=== PATIENT | male | born 1950 | race African-American/Black ===

== ENCOUNTER 2016-10-01 14:19 | Inpatient (IN) ==
--- NOTE | 2016-10-01 14:53 | Emergency Department Note ---
Arrival - Arrival Chief Complaint: Neuro Stated Complaint: check sugar ED Nursing Triage Note: reports not feeling right since last night. reports that he is having weakness. pt is tearful in triiage. having trouble getting words out. accu check in triage is 144. Mode of Arrival: Wheelchair Limitations: Altered Mental Status Source: Patient, Family Time Seen by Provider: 10/01/16 14:48 - History of Present Illness HPI Narrative: This 65-year-old black male presents tearful with spontaneous outbursts of crying describing feeling much more weaker than usual and just not feeling right , stating I do not want to today. His describes his emotional state as being upside down for the last 18 hours with periods of disorientation and what she feels is visible difficulty getting words out. She states this is how he presented with his stroke in the past which left him with no residual deficits at that time. In addition she states on this occasion that he frequently states his mother is around him any complaints of painful hard lesions in his right axilla. Patient at no time demonstrated any chest pain, shortness of breath, nausea, vomiting, focal deficits, slurring of speech , or complaints of headache. He does have an extensive history of coronary artery disease as well as dialysis dependent renal failure, dialyzing Sunday and Sunday. Currently he is tearful but in no acute medical distress. Onset (ago): hour(s) (Patient presents 18 hours post onset of symptoms) Allergies/Adverse Reactions: Allergies Allergy/AdvReac Type Severity Reaction Status Date / Time No Known Allergies Allergy Verified 01/07/16 08:27 Home Medications: Home Medications Medication Instructions Recorded Confirmed Type Allopurinol [Zyloprim] 100 mg PO DAILY PRN #0 tablet 01/13/16 03/29/16 Rx Aspirin EC Tab 81 mg PO DAILY tablet 01/13/16 03/29/16 Rx Carvedilol [Coreg] 25 mg PO BID #60 tablet 01/13/16 03/29/16 Rx Clopidogrel [Plavix] 75 mg PO DAILY #30 tablet 01/13/16 03/29/16 Rx Insulin Aspart Prot/Asp 70/30 55 unit SUBCUT BID injection 01/13/16 03/29/16 Rx [NovoLOG Mix 70/30] Rosuvastatin [Crestor] 20 mg PO BEDTIME #30 tablet 01/13/16 03/29/16 Rx Omeprazole 20 mg PO DAILY 01/30/16 03/29/16 History Ondansetron Odt Tab [Zofran Odt] 4 mg PO Q6H #15 tablet 01/30/16 03/29/16 Rx cloNIDine TAB [Catapres Tab] 0.1 mg PO TID 01/30/16 03/29/16 History Calcium Acetate 1,334 mg PO TID W/MEALS 02/10/16 03/29/16 History Calcium Acetate 667 mg PO BID 02/10/16 03/29/16 History Cyanocobalamin/Folic AC/Vit B6 1 tablet PO DAILY 02/10/16 03/29/16 History [Virt-Isiah Forte Tablet] Tamsulosin [Flomax] 0.4 mg PO DAILY 02/10/16 03/29/16 History NIFEdipine XL TAB [Procardia Xl] 60 mg PO DAILY #30 tablet 02/15/16 03/29/16 Rx Review of System - Review of System 12 point system: reviewed and no additional remarkable complaints except as stated - Review of System Constitutional: Present: as per HPI Respiratory: Present: as per HPI Cardiovascular: Present: as per HPI Gastrointestinal: Present: as per HPI Neurological: Present: as per HPI Psychiatric: Present: as per HPI Medical,Surgical,& Family Hx - Medical History Cardio: History of: CHF, CAD (LAD stent x 2 12/28), Hypertension No history of: [place] Psychological: No history of: Depression Neurology: History of: Cerebrovascular Accident No history of: Dementia, Seizures, Vertigo HEENT: History of: Eye Problem (cataract surgery x 2), Glaucoma Endocrine: History of: Diabetes Mellitus (IDDM), Dyslipidemia Respiratory: History of: Obstructive Sleep Apnea (pt states he does not wear Cpap) Renal: History of: Dialysis (M-W-F), Renal Failure, Renal Problems Genitourinary: History of: Kidney Stones Gastrointestinal: History of: GERD, Polyps No history of: Gastrointestinal Bleed Other: History of: Miscellaneous Medical Problems (avg declot jan 2016) - Surgical History Cardiac Surgeries: Sugical HX of: Cardiac Catheterization (PCI of LAD 12/28) Thoracic Surgeries: Patient denies;: Organ Transplant Neurologic Surgeries: Patient denies: Neurologic Surgery HEENT Surgeries: Surgical HX of: Eye Surgery (CATARACT REMOVAL LEFT EYE) Abdominal Surgeries: Surgical HX of: Abdominal Surgery (COLECTOMY), Appendectomy , Colonoscopy (scheduled for another follow up cscope next month) - Family History Family History: Reports;: Family Diabetes (BROTHER AND SISTER), Family Heart Disease, Family Hypertension, Family Stroke (father) - Social History Smoking Status: Never smoker Exam Physical Examination: GENERAL: Weeping obese black male in no acute distress.. HEENT: Normocephalic. No trauma. Moist mucous membranes. EOMI. PERRLA. ENT NML NECK: Supple. No adenopathy. CARDIAC: Regular. No murmurs. Heart rate 64 CHEST: Clear to auscultation. No respiratory distress. O2 sat 97%. Pustular lesion right anterior chest wall with minimal expressible pus ABDOMEN: Soft. Nontender. Active bowel sounds. EXTREMITIES: No trauma. Normal ROM. No pedal edema. Painful hard firm right axillary adenitis with scant amount of pus with pressure SKIN: No diaphoresis. No rash. NEURO: Alert. Oriented 3. Motor, sensory, vibratory intact. No focal deficits. Vital Signs: Vital Signs Temperature 99.5 F 10/01/16 14:47 Pulse Rate 65 10/01/16 15:30 Respiratory Rate 17 10/01/16 15:30 Blood Pressure 175/85 10/01/16 15:30 O2 Sat by Pulse Oximetry 100 10/01/16 15:30 Course - Reevaluation(s) Reevaluation #1: Discussed with family the need for further evaluation of his altered mental status with hospitalization. - Consultations Consultation #1: Discussed with Dr. Encarnacion who will admit for Dr. Oleary. Results - Labs CBC & BMP: 10/01/16 15:03 10/01/16 15:03 Labs: I have reviewed the laboratory noted the expected abnormalities given the patient has diabetes and dialysis dependent renal failure - Impressions EKG: Sinus rhythm at 62 with normal [place] interval and QRS duration. Evidence of old inferior infarct. Occasional PAC. Nonspecific ST changes with no acute injury pattern noted. - Diagnostic Findings Procedure: Chest x-ray: image reviewed by me, report reviewed by me ( Hyperexpansion with right Vas-Cath otherwise no acute findings), CT: image reviewed by me, report reviewed by me (Head: Microvascular ischemia, cerebral atrophy, old right lacunar infarct) Disposition Clinical Impression: Altered mental status, Dialysis dependent renal failure, Coronary artery disease, Depression Case discussed with: patient, patient's family Disposition: Still a Patient Condition: Guarded Time of Disposition: 16:31
[2016-10-01 15:12] LABS: Basophils % 0.6 % (0.0-0.8); Eosinophils # 0.2 10*3/uL (0.0-0.87); Eosinophils % 2.9 % (0.00-10.9); Hematocrit 31.6 VOL% (42.0-52.0); Hemoglobin 10.7 GM/DL (14.0-18.0); Immature Granulocytes % 0.8 %; Immature Granulocytes Absolute 0.05 #; Lymphocytes # 1.9 10*3/uL (1.4-4.0); Lymphocytes % 29.2 % (21.2-54.2); Mean Corpuscular HGB Conc 33.9 GM/DL (32-36); Mean Corpuscular Hemoglobin 29 PG (27-34); Mean Corpuscular Volume 85.4 FL (87-102); Mean Platelet Volume 11.4 FL (9.6-12.0); Monocytes # 0.5 10*3/uL (0.11-0.8); Monocytes % 7.3 % (1.7-12.7); Neutrophils # 3.9 10*3/uL (1.4-7.4); Neutrophils % 59.2 % (38.7-73.9); Platelet Count 167 T/CUMM (130-400); Red Cell Distribution Width 16.5 % (9.3-17.3); White Blood Count 6.6 T/CUMM (4-12)
[2016-10-01 15:28] LABS: INR 1.1; PT Patient Result 11.5 SECS; Partial Thromboplastin Time 28.6 SECS (0-40)
[2016-10-01] MEDS ORDERED: VANCOMYCIN INJ 1,000 MG in SODIUM CHLORIDE 0.9% 250 ML IV STA (15:28)
[2016-10-01 15:35] LABS: Ammonia 41 UMOL/L (11-32)
[2016-10-01 15:42] LABS: Alanine Aminotransferase 38 U/L (16-61); Albumin 3.9 G/DL (3.4-5.0); Alkaline Phosphatase 56 U/L (45-117); Aspartate Amino Transferase 29 U/L (0-37); Bilirubin,Total < 0.39 MG/DL (0.2-1.0); Blood Urea Nitrogen 49 MG/DL (7-18); Calcium 8.2 MG/DL (8.5-10.1); Glucose 123 MG/DL (74-106); Osmolality,Calculated 283.1 MOS/KG (273-304); Potassium 5.2 MMOL/L (3.5-5.1); Sodium 135 MMOL/L (136-145); Total Protein 8.1 G/DL (6.4-8.3); Troponin I Only < 0.015 NG/ML (0.00-0.045)
[2016-10-01] MEDS ORDERED: VANCOMYCIN 1,000 MG VIAL ONE (15:44)
--- NOTE | 2016-10-01 15:51 | CT Report ---
CT head/brain wo con Indication: Mental status changes. CT BRAIN WITHOUT CONTRAST DLP: 998 mGy*cm. One or more of the following dose reduction techniques was used: Automated exposure control, adjustment of the mA and/or kV according the patient size, or use of iterative reconstruction techniques. Comparison: 02/10/2016. Date of admission: 10/01/2016. Technique: Axial noncontrast CT images of the brain were obtained. Findings: No acute hemorrhage, mass or mass effect. Generalized atrophy and patchy periventricular white matter hypodensity is present throughout both convexities. Old lacunar infarct right internal capsule again shown. Cortical michaels-white junction and structures of the basal ganglia are well-defined. No bone lesions are shown. Internal auditory canals are symmetric. Visualized sinuses and mastoid air cells are clear. Impression: No acute intracranial pathology. Generalized atrophy and changes consistent with microvascular disease. Old lacunar infarct right internal capsule. PROCEDURE INTERPRETED AT [facility] DEPARTMENT OF RADIOLOGY Final Report Signed by: Torsten Garcia M.D.
--- NOTE | 2016-10-01 15:52 | XRay Report ---
XR chest 1V portable Indication: Altered mental status. Chest one view: Comparison 03/27/2016. Dialysis catheter position is unchanged. Heart remains normal in size with normal mediastinal contour. Lungs are hypoinflated with no infiltrates. No pulmonary edema. Impression: Pulmonary hypoinflation and dialysis catheter. PROCEDURE INTERPRETED AT [facility] DEPARTMENT OF RADIOLOGY Final Report Signed by: Torsten Garcia M.D.
[2016-10-01] MEDS ORDERED: DEXTROSE 50% 25 GM/50 ML SYRINGE IV PRN (16:34)
[2016-10-01] MEDS ORDERED: GLUCAGON 1 MG VIAL IM PRN (16:34)
[2016-10-01] MEDS ORDERED: ONDANSETRON 4 MG/2 ML VIAL IV PRN (16:34)
[2016-10-01] MEDS ORDERED: hydrALAZINE 20 MG/1 ML VIAL ONE (16:50)
[2016-10-01] MEDS ORDERED: hydrALAZINE 20 MG/1 ML VIAL IV STA (16:51)
[2016-10-01] MEDS: cloNIDine 0.1 MG TABLET PO SCH (21:16)
[2016-10-01] MEDS: ROSUVASTATIN 20 MG TABLET PO SCH (21:16)
[2016-10-01] MEDS: CARVEDILOL 25 MG TABLET PO SCH (21:16)
[2016-10-01] MEDS: INSULIN ASPART PROTAMINE/ASPART 70/30 100 UNIT/ML SUBCUT SCH (21:16)
[2016-10-01] MEDS: INSULIN REGULAR 100 UNIT/ML SUBCUT SCH (21:45)
[2016-10-02] MEDS ORDERED: hydrALAZINE 20 MG/1 ML VIAL IV PRN (01:48)
[2016-10-02 05:38] LABS: Basophils % 0.4 % (0.0-0.8); Eosinophils # 0.2 10*3/uL (0.0-0.87); Eosinophils % 2.8 % (0.00-10.9); Hematocrit 31.2 VOL% (42.0-52.0); Hemoglobin 10.4 GM/DL (14.0-18.0); Immature Granulocytes % 0.9 %; Immature Granulocytes Absolute 0.06 #; Lymphocytes % 27.8 % (21.2-54.2); Mean Corpuscular HGB Conc 33.3 GM/DL (32-36); Mean Corpuscular Hemoglobin 29 PG (27-34); Mean Corpuscular Volume 85.7 FL (87-102); Mean Platelet Volume 11.3 FL (9.6-12.0); Monocytes # 0.4 10*3/uL (0.11-0.8); Monocytes % 6.2 % (1.7-12.7); Neutrophils # 4.4 10*3/uL (1.4-7.4); Neutrophils % 61.9 % (38.7-73.9); Platelet Count 180 T/CUMM (130-400); Red Blood Count 3.64 MC/CUMM (3.8-5.5); Red Cell Distribution Width 16.8 % (9.3-17.3); White Blood Count 7.1 T/CUMM (4-12)
--- NOTE | 2016-10-02 05:54 | EKG Report ---
Stationary ECG Study [facility] ER Test Date: 10/01/2016 3:10:56 PM Pat Name: GISELLE HINSON Department: Room: 272 Gender: M [employer] Supervisor: : [id number] Requested by: Hima Schwartz Order Number: [id number] Reading MD: ELANA GOMEZ Intervals Macy Rate: 62 P: 50 MN: 148 QRS: 33 QRSD: 100 T: 43 QT: 411 QTc: 417 Interpretive Statements SINUS RHYTHM WITH OCCASIONAL SUPRAVENTRICULAR PREMATURE COMPLEXES INFERIOR MYOCARDIAL INFARCTION, PROBABLY OLD Electronically Signed On 10-02-16 06:47:07 CDT by ELANA GOMEZ [email or web address]
[2016-10-02 06:06] LABS: Calcium 8.3 MG/DL (8.5-10.1); Osmolality,Calculated 292.1 MOS/KG (273-304); Potassium 5.1 MMOL/L (3.5-5.1)
[2016-10-02] MEDS ORDERED: hydrALAZINE 20 MG/1 ML VIAL IV ONE (06:18)
--- NOTE | 2016-10-02 08:36 | Internal Med History&Physical ---
Assessment and Plan (1) Change in mental status Status: Acute Assessment and plan: 65-year-old male admitted to acute care * Change in mental status. Etiology is unclear at this time. Probably related to metabolic or infectious condition. His initial CT brain was negative for any acute change. His confusion could be related to infectious etiology. Cultures have been done. He will be started on broad-spectrum antibiotics. * End-stage renal disease on hemodialysis. Will consult Dr. Duncan to follow the patient. Today is his normal dialysis day. * Multiple abscesses. Will consult Dr. Ngoc CARMICHAEL to evaluate and treat. Will also consult Dr. Morrell to assist with antibiotic choices. He did receive 1 g of vancomycin and ER. Local cultures were done. * Diabetes. Will continue patient on sliding scale and his home insulin * Coronary artery disease. Stable patient has been on Plavix. * Hypertension. Continue current treatment * Discussed in detail with patient's and patient Current Visit: Yes (2) Abscess of multiple sites Status: Acute Current Visit: Yes (3) Coronary artery disease Status: Chronic Current Visit: No Qualifiers: Coronary Disease-Associated Artery/Lesion type: [place] artery [place] vs. transplanted heart: [place] heart Associated angina: without angina Qualified Code(s): I25.10 - Atherosclerotic heart disease of [place] coronary artery without angina pectoris (4) Diabetes Status: Chronic Current Visit: No Qualifiers: Diabetes mellitus type: type 2 Diabetes mellitus complication status: with kidney complications Diabetes mellitus complication detail: with chronic kidney disease Chronic kidney disease stage: on chronic dialysis (5) ESRD (end stage renal disease) Status: Chronic Current Visit: No (6) Hypertension Status: Chronic Current Visit: No Qualifiers: Hypertension type: essential hypertension Qualified Code(s): I10 - Essential (primary) hypertension History of Present Illness Chief complaint: Change in mental state History of present illness: Mr. Grey is a 65 year old male with history of multiple medical problems including coronary artery disease, insulin-dependent diabetes, hyperlipidemia, end-stage renal disease on dialysis 3 times a week, hyperlipidemia who came to the emergency room not feeling right. He has been quite emotional according to his . He was quite disoriented during the daytime. He had difficulty getting his words out. According to the patient is having hallucinations at times. He actually admits mostly visual hallucinations. He has been having increased pain in the right axilla and chest wall. He has had lesions which were incised by Dr. Grossman the third. He denies any chest pain shortness of breath. He denies any nausea vomiting or diarrhea. He denies any fever or chills. He had his last dialysis on Sunday and it was normal. He had stents placed in his LAD in December 2015. He does have obstructive sleep apnea but does not use his CPAP. He has a indwelling catheter for dialysis in the right upper chest wall. His fistula has not been working for past 1 year. He lives at home with his . Patient has been quite emotional and tearful according to his . Home Medications Medication Instructions Recorded Confirmed Type Allopurinol [Zyloprim] 100 mg PO DAILY PRN #0 tablet 01/13/16 03/29/16 Rx Aspirin EC Tab 81 mg PO DAILY tablet 01/13/16 03/29/16 Rx Carvedilol [Coreg] 25 mg PO BID #60 tablet 01/13/16 03/29/16 Rx Clopidogrel [Plavix] 75 mg PO DAILY #30 tablet 01/13/16 03/29/16 Rx Insulin Aspart Prot/Asp 70/30 55 unit SUBCUT BID injection 01/13/16 03/29/16 Rx [NovoLOG Mix 70/30] Rosuvastatin [Crestor] 20 mg PO BEDTIME #30 tablet 01/13/16 03/29/16 Rx Omeprazole 20 mg PO DAILY 01/30/16 03/29/16 History Ondansetron Odt Tab [Zofran Odt] 4 mg PO Q6H #15 tablet 01/30/16 03/29/16 Rx cloNIDine TAB [Catapres Tab] 0.1 mg PO TID 01/30/16 03/29/16 History Calcium Acetate 1,334 mg PO TID W/MEALS 02/10/16 03/29/16 History Calcium Acetate 667 mg PO BID 02/10/16 03/29/16 History Cyanocobalamin/Folic AC/Vit B6 1 tablet PO DAILY 02/10/16 03/29/16 History [Virt-Isiah Forte Tablet] Tamsulosin [Flomax] 0.4 mg PO DAILY 02/10/16 03/29/16 History NIFEdipine XL TAB [Procardia Xl] 60 mg PO DAILY #30 tablet 02/15/16 03/29/16 Rx Allergies Allergy/AdvReac Type Severity Reaction Status Date / Time No Known Allergies Allergy Verified 01/07/16 08:27 Medical,Surgical,& Family Hx - Medical History Cardio: History of: CHF, CAD (LAD stent x 2 12/28), Hypertension No history of: [place] Psychological: No history of: Depression Neurology: History of: Cerebrovascular Accident No history of: Dementia, Seizures, Vertigo HEENT: History of: Eye Problem (cataract surgery x 2), Glaucoma Endocrine: History of: Diabetes Mellitus (IDDM), Dyslipidemia Respiratory: History of: Obstructive Sleep Apnea (pt states he does not wear Cpap) Renal: History of: Dialysis (M-W-; left tessio), Renal Failure, Renal Problems Genitourinary: History of: Kidney Stones Gastrointestinal: History of: GERD, Polyps No history of: Gastrointestinal Bleed Other: History of: Miscellaneous Medical Problems (avg declot jan 2016) - Surgical History Cardiac Surgeries: Sugical HX of: Cardiac Catheterization (PCI of LAD 12/28) Thoracic Surgeries: Patient denies;: Organ Transplant Neurologic Surgeries: Patient denies: Neurologic Surgery HEENT Surgeries: Surgical HX of: Eye Surgery (CATARACT REMOVAL LEFT EYE) Abdominal Surgeries: Surgical HX of: Abdominal Surgery (COLECTOMY), Appendectomy , Colonoscopy (scheduled for another follow up cscope next month) - Family History Family History: Reports;: Family Diabetes (BROTHER AND SISTER), Family Heart Disease, Family Hypertension, Family Stroke (father) - Social History Smoking Status: Never smoker Frequency of Alcohol Use: None Type of Drug Use: None Marital Status: Lives With:: Spouse Functional capacity: independent ambulation 12 point system: reviewed and no additional remarkable complaints except as stated (As mentioned in HPI) Exam - Constitutional Vitals: Period Temp Pulse Resp BP Sys/Nelson Pulse Ox Last 24 Hr 97.6 F-99.5 F 63-78 14-20 172-230/73-100 96-100 Exam: Examination: GENERAL: Patient is awake alert and in no acute distress. He is slightly confused and knows that he is. HEENT: PERRLA. EOMI. Mucous membranes are moist. NECK: Neck is supple. No JVD. No carotid bruit. No thyromegaly. CVS: Regular rate and rhythm. S1 and S2 are normal. RESPIRATORY: Lungs are clear. No rales or rhonchi. ABDOMEN: Soft and nontender. Bowel sounds are present. No hepatosplenomegaly. EXT: No edema. Peripheral pulses are present. 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 Cranial nerves II through XII are grossly intact. Motor strength is 5 over 5 both upper and lower extremities. SKIN: Warm and dry. There is an abscess in the right anterior chest wall below his nipple. It is draining pus. He also has an indurated area in the right axilla where it appears to have couple of abscesses. MSK: No obvious deformity. Results - Labs CBC & BMP: 10/02/16 04:58 10/02/16 04:58 Lab Results: I have reviewed the past 24 hour labs
[2016-10-02] MEDS: INSULIN ASPART PROTAMINE/ASPART 70/30 100 UNIT/ML SUBCUT SCH ×2 (09:15→17:13)
[2016-10-02] MEDS: PIPERACILLIN/TAZOBACTAM 3,375 MG in SODIUM CHLORIDE 0.9% 100 ML IV SCH ×2 (10:13→22:18)
[2016-10-02] MEDS: INSULIN REGULAR 100 UNIT/ML SUBCUT SCH ×4 (10:13→22:24)
[2016-10-02] MEDS: CARVEDILOL 25 MG TABLET PO SCH ×2 (10:17→22:16)
[2016-10-02] MEDS: TAMSULOSIN 0.4 MG CAPSULE PO SCH (10:17)
[2016-10-02] MEDS: CLOPIDOGREL 75 MG TABLET PO SCH (10:17)
[2016-10-02] MEDS: PANTOPRAZOLE 40 MG TABLET PO SCH (10:17)
[2016-10-02] MEDS: cloNIDine 0.1 MG TABLET PO SCH ×3 (10:17→22:16)
--- NOTE | 2016-10-02 11:55 | Nephrology Consult Note ---
History of Present Illness Chief complaint: ESRD History of present illness: Mr. Grey is a 65 year old male with ESRD secondary to diabetes. He has multiple other chronic medical problems including CAD hypertension and cerebrovascular disease. He was admitted with altered mental status. He has had visual hallucinations, stating that things look like they are moving when they are not. His states he has been more emotional recently. No seizure activity has been witnessed. He has a subcutaneous abscess on his right chest which was noted last week. He received vancomycin Sunday of last week in the dialysis unit. He has had a previous right axillary abscess drained. Home Medications Medication Instructions Recorded Confirmed Type Aspirin EC Tab 81 mg PO DAILY tablet 01/13/16 10/02/16 Rx Carvedilol [Coreg] 25 mg PO BID #60 tablet 01/13/16 10/02/16 Rx Clopidogrel [Plavix] 75 mg PO DAILY #30 tablet 01/13/16 10/02/16 Rx Rosuvastatin [Crestor] 20 mg PO BEDTIME #30 tablet 01/13/16 10/02/16 Rx Omeprazole 20 mg PO DAILY 01/30/16 10/02/16 History cloNIDine TAB [Catapres Tab] 0.2 mg PO BID 01/30/16 10/02/16 History Cyanocobalamin/Folic AC/Vit B6 1 tablet PO DAILY 02/10/16 10/02/16 History [Virt-Isiah Forte Tablet] Tamsulosin [Flomax] 0.4 mg PO DAILY 02/10/16 10/02/16 History NIFEdipine XL TAB [Procardia Xl] 60 mg PO DAILY #30 tablet 02/15/16 10/02/16 Rx Fenofibrate [Fenofibrate] 160 mg PO DAILY 10/02/16 10/02/16 History Insulin Aspart Prot/Asp 70/30 55 unit SUBCUT QAM 10/02/16 10/02/16 History [NovoLOG Mix 70/30] Insulin Aspart Prot/Asp 70/30 60 units SUBCUT BEDTIME 10/02/16 10/02/16 History [NovoLOG Mix 70/30] Allergies Allergy/AdvReac Type Severity Reaction Status Date / Time No Known Allergies Allergy Verified 01/07/16 08:27 Medical,Surgical,& Family Hx - Medical History Cardio: History of: CHF, CAD (LAD stent x 2 12/28), Hypertension No history of: [place] Psychological: No history of: Depression Neurology: History of: Cerebrovascular Accident No history of: Dementia, Seizures, Vertigo HEENT: History of: Eye Problem (cataract surgery x 2), Glaucoma Endocrine: History of: Diabetes Mellitus (IDDM), Dyslipidemia Respiratory: History of: Obstructive Sleep Apnea (pt states he does not wear Cpap) Renal: History of: Dialysis (M-W-F; left tessio), Renal Failure, Renal Problems Genitourinary: History of: Kidney Stones Gastrointestinal: History of: GERD, Polyps No history of: Gastrointestinal Bleed Other: History of: Miscellaneous Medical Problems (avg declot jan 2016) - Surgical History Cardiac Surgeries: Sugical HX of: Cardiac Catheterization (PCI of LAD 12/28) Thoracic Surgeries: Patient denies;: Organ Transplant Neurologic Surgeries: Patient denies: Neurologic Surgery HEENT Surgeries: Surgical HX of: Eye Surgery (CATARACT REMOVAL LEFT EYE) Abdominal Surgeries: Surgical HX of: Abdominal Surgery (COLECTOMY), Appendectomy , Colonoscopy (scheduled for another follow up cscope next month) - Family History Family History: Reports;: Family Diabetes (BROTHER AND SISTER), Family Heart Disease, Family Hypertension, Family Stroke (father) - Social History Smoking Status: Never smoker Frequency of Alcohol Use: None Type of Drug Use: None Review of Systems 12 point system: reviewed and no additional remarkable complaints except as stated Exam - Vital Signs Vital signs: Period Temp Pulse Resp BP Sys/Nelson Pulse Ox Last 24 Hr 97.6 F-99.5 F 63-78 14-20 168-230/73-101 96-100 Exam: Gen.: Alert and oriented x3. ENT: Pupils equal round reactive to light. EOMs intact. Mucous membranes moist. Neck: Supple. No JVD or bruit. Cardiovascular: Regular rate and rhythm. No murmur rub or gallop Lungs: Clear. Right chest wall abscess Abdomen: Soft. Nontender. Positive bowel sounds. No organomegaly Extremities: Trace edema Results - Labs CBC & BMP: 10/02/16 04:58 10/02/16 04:58 Assessment and Plan (1) ESRD (end stage renal disease) Status: Chronic Assessment and plan: 65-year-old man with: * ESRD. Dialysis today * Altered mental status. CT scan shows remote lacunar infarct. No acute changes * Abscess, chest wall and right axilla. He received a second dose of vancomycin in the ER. Zosyn has been started also. * Diabetes mellitus * CAD. Prior stent placement * Cerebrovascular disease Current Visit: No (2) Abscess of multiple sites Status: Acute Current Visit: Yes (3) Change in mental status Status: Acute Current Visit: Yes (4) Coronary artery disease Status: Chronic Current Visit: No Qualifiers: Coronary Disease-Associated Artery/Lesion type: [place] artery [place] vs. transplanted heart: [place] heart Associated angina: without angina Qualified Code(s): I25.10 - Atherosclerotic heart disease of [place] coronary artery without angina pectoris (5) Diabetes Status: Chronic Current Visit: No Qualifiers: Diabetes mellitus type: type 2 Diabetes mellitus complication status: with kidney complications Diabetes mellitus complication detail: with chronic kidney disease Chronic kidney disease stage: on chronic dialysis (6) Hypertension Status: Chronic Current Visit: No Qualifiers: Hypertension type: essential hypertension Qualified Code(s): I10 - Essential (primary) hypertension
--- NOTE | 2016-10-02 12:03 | General Surgery Consult Note ---
Assessment and Plan (1) Abscess of multiple sites Status: Acute Assessment and plan: I have discussed the options for management with the patient and his family including warm compress and antibiotics versus incision and drainage of the abscesses. I recommended incision and drainage of these abscesses to expedite recovery and control infection. The patient and his family like to proceed. I discussed the risks, benefits, and alternatives of the operation, and the expected outcomes have been reviewed. The patient has already eaten today and I do not think this is an emergency that needs to be done on a full stomach so we will allow him to dialyze today and schedule this for tomorrow in the operating room. Current Visit: Yes History of Present Illness Chief complaint: Right axillary and right chest wall abscesses History of present illness: Mr. Grey is a 65 year old male with a history of end-stage renal disease on hemodialysis who presents to the hospital with abscesses of the right chest wall and axilla on the right side. He has had these before drained by Dr. Grossman. He is afebrile with a normal white blood cell count. He is having pain over these areas. This started draining yesterday. Home Medications Medication Instructions Recorded Confirmed Type Aspirin EC Tab 81 mg PO DAILY tablet 01/13/16 10/02/16 Rx Carvedilol [Coreg] 25 mg PO BID #60 tablet 01/13/16 10/02/16 Rx Clopidogrel [Plavix] 75 mg PO DAILY #30 tablet 01/13/16 10/02/16 Rx Rosuvastatin [Crestor] 20 mg PO BEDTIME #30 tablet 01/13/16 10/02/16 Rx Omeprazole 20 mg PO DAILY 01/30/16 10/02/16 History cloNIDine TAB [Catapres Tab] 0.2 mg PO BID 01/30/16 10/02/16 History Cyanocobalamin/Folic AC/Vit B6 1 tablet PO DAILY 02/10/16 10/02/16 History [Virt-Isiah Forte Tablet] Tamsulosin [Flomax] 0.4 mg PO DAILY 02/10/16 10/02/16 History NIFEdipine XL TAB [Procardia Xl] 60 mg PO DAILY #30 tablet 02/15/16 10/02/16 Rx Fenofibrate [Fenofibrate] 160 mg PO DAILY 10/02/16 10/02/16 History Insulin Aspart Prot/Asp 70/30 55 unit SUBCUT QAM 10/02/16 10/02/16 History [NovoLOG Mix 70/30] Insulin Aspart Prot/Asp 70/30 60 units SUBCUT BEDTIME 10/02/16 10/02/16 History [NovoLOG Mix 70/30] Allergies Allergy/AdvReac Type Severity Reaction Status Date / Time No Known Allergies Allergy Verified 01/07/16 08:27 Medical,Surgical,& Family Hx - Medical History Cardio: History of: CHF, CAD (LAD stent x 2 12/28), Hypertension No history of: [place] Psychological: No history of: Depression Neurology: History of: Cerebrovascular Accident No history of: Dementia, Seizures, Vertigo HEENT: History of: Eye Problem (cataract surgery x 2), Glaucoma Endocrine: History of: Diabetes Mellitus (IDDM), Dyslipidemia Respiratory: History of: Obstructive Sleep Apnea (pt states he does not wear Cpap) Renal: History of: Dialysis (M-W-; left tessio), Renal Failure, Renal Problems Genitourinary: History of: Kidney Stones Gastrointestinal: History of: GERD, Polyps No history of: Gastrointestinal Bleed Other: History of: Miscellaneous Medical Problems (avg declot jan 2016) - Surgical History Cardiac Surgeries: Sugical HX of: Cardiac Catheterization (PCI of LAD 12/28) Thoracic Surgeries: Patient denies;: Organ Transplant Neurologic Surgeries: Patient denies: Neurologic Surgery HEENT Surgeries: Surgical HX of: Eye Surgery (CATARACT REMOVAL LEFT EYE) Abdominal Surgeries: Surgical HX of: Abdominal Surgery (COLECTOMY), Appendectomy , Colonoscopy (scheduled for another follow up cscope next month) - Family History Family History: Reports;: Family Diabetes (BROTHER AND SISTER), Family Heart Disease, Family Hypertension, Family Stroke (father) - Social History Smoking Status: Never smoker Frequency of Alcohol Use: None Type of Drug Use: None - Constitutional Constitutional: Present: as per HPI - EENT Nose, mouth and throat: Present: as per HPI - Cardiovascular Cardiovascular: Present: as per HPI - Respiratory Respiratory: Present: as per HPI - Gastrointestinal Gastrointestinal: Present: as per HPI - Genitourinary Genitourinary: Present: as per HPI - Musculoskeletal Musculoskeletal: Present: as per HPI - Neurological Neurological: Present: as per HPI - Endocrine Endocrine: Present: as per HPI Hematologic/Lymphatic: Present: as per HPI Exam - Constitutional Vitals: Period Temp Pulse Resp BP Sys/Nelson Pulse Ox Last 24 Hr 97.6 F-99.5 F 63-78 14-20 168-230/73-101 96-100 General appearance: no acute distress, over weight - Head Head exam: Present: normal inspection, normocephalic - Eye Eye exam: Present: EOMI. Absent: scleral icterus Pupils: Present: OCHOA - ENT ENT exam: Present: normal exam Mouth exam: Present: normal external inspection, normal voice - Neck Neck exam: Present: normal inspection, trachea midline - Respiratory Respiratory exam: Present: clear to auscultation bilaterally. Absent: accessory muscle use, chest wall tenderness - Cardiovascular Cardiovascular exam: Present: RRR. Absent: systolic murmur, tachycardia - GI/Abdominal GI/Abdominal exam: Present: soft. Absent: tenderness, rebound - Extremities Exam Extremities exam: Present: other (There is a right chest wall abscess and a right axillary abscess that are draining some but not completely opened. They are tender to palpation.) - Back Exam Back exam: Present: normal inspection - Neurological Exam Neurological exam: Present: alert, oriented X3 Speech: Present: normal - Skin Skin exam: Present: normal color, warm Quality Measures - VTE Contraindication to Mechanical VTE Prophylaxis: Ischemic Vascular Disease Results - Labs CBC & BMP: 10/02/16 04:58 10/02/16 04:58
--- NOTE | 2016-10-02 13:07 | Operative Note ---
Date of procedure: 10/02/16 Pre-op diagnosis: Right axillary and right chest wall abscess Post-op diagnosis: same Procedure: #1 incision and drainage of complex abscess right axilla 2. Incision and drainage of simple abscess right chest wall Findings and technique: After informed consent was obtained the patient elected to have his abscess drained at the bedside rather than under anesthesia. Doing this at the bedside would allow him to avoid anesthesia and also he had eaten today though this would have to be done tomorrow after he had dialysis today. The patient elected to go ahead and have been at the bedside procedure without anesthesia. The right axilla was sterilely prepped and draped and 2 small incisions were made to the abscess openings adjacent to one another in the right axilla. Pus was expressed from each of these openings and cultured. These were packed dressed open. The chest anteriorly was prepped and draped in usual sterile fashion and the 2 cm area of induration was incised by 1 cm incision with a #15 blade was evacuated and the wound dressed open. He appeared to tolerate the procedure well. Anesthesia: none Surgeon / Physician: Charbel Grossman III. Specimens: other (Cultures) Condition: stable Disposition: no change Results - Labs CBC & BMP: 10/02/16 04:58 10/02/16 04:58 Discharge Plan - Discharge Medications No Action Aspirin EC Tab 81 mg PO DAILY tablet Carvedilol [Coreg] 25 mg PO BID #60 tablet Clopidogrel [Plavix] 75 mg PO DAILY #30 tablet Rosuvastatin [Crestor] 20 mg PO BEDTIME #30 tablet Insulin Aspart Prot/Asp 70/30 [NovoLOG Mix 70/30] 55 unit SUBCUT QAM Insulin Aspart Prot/Asp 70/30 [NovoLOG Mix 70/30] 60 units SUBCUT BEDTIME cloNIDine TAB [Catapres Tab] 0.2 mg PO BID Omeprazole 20 mg PO DAILY Tamsulosin [Flomax] 0.4 mg PO DAILY Cyanocobalamin/Folic AC/Vit B6 [Virt-Isiah Forte Tablet] 1 tablet PO DAILY NIFEdipine XL TAB [Procardia Xl] 60 mg PO DAILY #30 tablet Fenofibrate [Fenofibrate] 160 mg PO DAILY - Follow Up or Referral - Forms/Instructions
[2016-10-02] MEDS ORDERED: HEPARIN 10,000 UNIT/10 ML VIAL IV SCH (17:00)
[2016-10-02] MEDS: ROSUVASTATIN 20 MG TABLET PO SCH (22:16)
[2016-10-03 06:01] LABS: Basophils % 0.5 % (0.0-0.8); Eosinophils # 0.3 10*3/uL (0.0-0.87); Eosinophils % 3.2 % (0.00-10.9); Hematocrit 33.9 VOL% (42.0-52.0); Hemoglobin 11.4 GM/DL (14.0-18.0); Immature Granulocytes % 0.7 %; Immature Granulocytes Absolute 0.06 #; Lymphocytes # 2.5 10*3/uL (1.4-4.0); Lymphocytes % 31.5 % (21.2-54.2); Mean Corpuscular HGB Conc 33.6 GM/DL (32-36); Mean Corpuscular Hemoglobin 29 PG (27-34); Mean Corpuscular Volume 85.2 FL (87-102); Mean Platelet Volume 11.2 FL (9.6-12.0); Monocytes # 0.5 10*3/uL (0.11-0.8); Monocytes % 6.2 % (1.7-12.7); Neutrophils # 4.7 10*3/uL (1.4-7.4); Neutrophils % 57.9 % (38.7-73.9); Platelet Count 202 T/CUMM (130-400); Red Blood Count 3.98 MC/CUMM (3.8-5.5); Red Cell Distribution Width 16.6 % (9.3-17.3); White Blood Count 8.1 T/CUMM (4-12)
[2016-10-03 06:28] LABS: Calcium 8.6 MG/DL (8.5-10.1); Potassium 4.2 MMOL/L (3.5-5.1)
[2016-10-03] MEDS: INSULIN ASPART PROTAMINE/ASPART 70/30 100 UNIT/ML SUBCUT SCH ×2 (08:10→17:21)
[2016-10-03] MEDS: INSULIN REGULAR 100 UNIT/ML SUBCUT SCH ×4 (08:10→21:27)
--- NOTE | 2016-10-03 09:40 | Internal Med Progress Note ---
Assessment and Plan (1) Change in mental status Status: Acute Assessment and plan: 65-year-old male admitted to acute care * Change in mental status. Confusion is better. He is close to baseline. Probably related to infection * End-stage renal disease on hemodialysis. Continue treatment per Dr. Duncan * Multiple abscesses. I&D done yesterday. Waiting for cultures and sensitivity * Diabetes. Will continue patient on sliding scale and his home insulin * Coronary artery disease. Stable patient has been on Plavix. * Hypertension. Continue current treatment * Discussed with patient and his Current Visit: Yes (2) Abscess of multiple sites Status: Acute Current Visit: Yes (3) Coronary artery disease Status: Chronic Current Visit: No Qualifiers: Coronary Disease-Associated Artery/Lesion type: [place] artery [place] vs. transplanted heart: [place] heart Associated angina: without angina Qualified Code(s): I25.10 - Atherosclerotic heart disease of [place] coronary artery without angina pectoris (4) Diabetes Status: Chronic Current Visit: No Qualifiers: Diabetes mellitus type: type 2 Diabetes mellitus complication status: with kidney complications Diabetes mellitus complication detail: with chronic kidney disease Chronic kidney disease stage: on chronic dialysis (5) ESRD (end stage renal disease) Status: Chronic Current Visit: No (6) Hypertension Status: Chronic Current Visit: No Qualifiers: Hypertension type: essential hypertension Qualified Code(s): I10 - Essential (primary) hypertension Internal Medicine - PN: Subj Interval history: He is feeling much better this morning. He denies any complaints and wants to go home. Exam (Progress Note) - Constitutional Vitals: Period Temp Pulse Resp BP Sys/Nelson Pulse Ox Last 24 Hr 96.8 F-99.3 F 64-77 17-20 148-187/78-82 97-100 Exam: Examination: GENERAL: No acute distress NECK: Neck is supple. CVS: Regular rate and rhythm. S1 and S2 are normal. RESPIRATORY: Lungs are clear. ABDOMEN: Soft and nontender. EXT: No edema. Peripheral pulses are present. PARTITION NOTCHER: Patient is awake, alert and oriented to time place and person. SKIN: Warm and dry. All 3 abscesses were incised and drained yesterday MSK: No obvious deformity. Results - Labs CBC & BMP: 10/03/16 05:29 10/03/16 05:29 Lab Results: I have reviewed the past 24 hour labs Quality Measures - VTE Contraindication to Mechanical VTE Prophylaxis: Ischemic Vascular Disease
[2016-10-03] MEDS: PANTOPRAZOLE 40 MG TABLET PO SCH (10:31)
[2016-10-03] MEDS: PIPERACILLIN/TAZOBACTAM 3,375 MG in SODIUM CHLORIDE 0.9% 100 ML IV SCH ×2 (10:31→21:28)
[2016-10-03] MEDS: CLOPIDOGREL 75 MG TABLET PO SCH (10:31)
[2016-10-03] MEDS: TAMSULOSIN 0.4 MG CAPSULE PO SCH (10:32)
[2016-10-03] MEDS: CARVEDILOL 25 MG TABLET PO SCH ×2 (10:32→21:15)
[2016-10-03] MEDS: cloNIDine 0.1 MG TABLET PO SCH ×3 (10:32→21:15)
--- NOTE | 2016-10-03 12:14 | Event Note ---
He states that his axilla and chest areas feel much better since incision and drainage yesterday. Faint cellulitis in his axilla appears to be. I would continue with local wound care and have instructed the nurses. He can get antibiotics on dialysis.
--- NOTE | 2016-10-03 20:55 | Nephrology Progress Note ---
Nephrology - PN: Subj Interval history: He is alert and oriented. No shortness of breath. States he feels better overall Exam (PN)-Nephrology - Vital Signs Vital signs: Period Temp Pulse Resp BP Sys/Nelson Pulse Ox Last 24 Hr 96.8 F-99.3 F 63-77 17-20 148-192/73-92 95-100 Exam: Gen.: Alert and oriented x3. ENT: Pupils equal round reactive to light. EOMs intact. Mucous membranes moist. Neck: Supple. No JVD or bruit. Cardiovascular: Regular rate and rhythm. No murmur rub or gallop Lungs: Clear Abdomen: Soft. Nontender. Positive bowel sounds. No organomegaly Extremities: No edema - Lab 10/03/16 05:29 10/03/16 05:29 Most recent lab results Calcium 8.6 MG/DL (8.5-10.1) 10/03/16 05:29 Assessment and Plan (1) ESRD (end stage renal disease) Status: Chronic Assessment and plan: 65-year-old man with: * ESRD. Dialysis MWF * Altered mental status. * Abscess, chest wall and right axilla. He received a second dose of vancomycin in the ER. Zosyn has been started also. Culture shows gram- positive cocci. Sensitivities pending * Diabetes mellitus * CAD. Prior stent placement * Cerebrovascular disease Current Visit: No (2) Abscess of multiple sites Status: Acute Current Visit: Yes (3) Change in mental status Status: Acute Current Visit: Yes (4) Coronary artery disease Status: Chronic Current Visit: No Qualifiers: Coronary Disease-Associated Artery/Lesion type: [place] artery [place] vs. transplanted heart: [place] heart Associated angina: without angina Qualified Code(s): I25.10 - Atherosclerotic heart disease of [place] coronary artery without angina pectoris (5) Diabetes Status: Chronic Current Visit: No Qualifiers: Diabetes mellitus type: type 2 Diabetes mellitus complication status: with kidney complications Diabetes mellitus complication detail: with chronic kidney disease Chronic kidney disease stage: on chronic dialysis (6) Hypertension Status: Chronic Current Visit: No Qualifiers: Hypertension type: essential hypertension Qualified Code(s): I10 - Essential (primary) hypertension
[2016-10-03] MEDS: ROSUVASTATIN 20 MG TABLET PO SCH (21:15)
[2016-10-04] MEDS: TAMSULOSIN 0.4 MG CAPSULE PO SCH (08:25)
[2016-10-04] MEDS: INSULIN ASPART PROTAMINE/ASPART 70/30 100 UNIT/ML SUBCUT SCH ×2 (08:25→17:48)
[2016-10-04] MEDS: INSULIN REGULAR 100 UNIT/ML SUBCUT SCH ×3 (08:25→21:31)
[2016-10-04] MEDS: CARVEDILOL 25 MG TABLET PO SCH ×2 (08:25→21:28)
[2016-10-04] MEDS: cloNIDine 0.1 MG TABLET PO SCH ×3 (08:25→21:28)
[2016-10-04] MEDS: CLOPIDOGREL 75 MG TABLET PO SCH (08:26)
[2016-10-04] MEDS: PANTOPRAZOLE 40 MG TABLET PO SCH (08:26)
--- NOTE | 2016-10-04 09:50 | Internal Med Progress Note ---
Assessment and Plan (1) Change in mental status Status: Acute Assessment and plan: 65-year-old male admitted to acute care * Change in mental status. Confusion has resolved * End-stage renal disease on hemodialysis. Continue treatment per Dr. Duncan * Multiple abscesses. Cultures and sensitivity pending * Diabetes. Will continue patient on sliding scale and his home insulin * Coronary artery disease. Stable patient has been on Plavix. * Hypertension. Continue current treatment * Hopefully home in a day or so if okay with the consultants Current Visit: Yes (2) Abscess of multiple sites Status: Acute Current Visit: Yes (3) Coronary artery disease Status: Chronic Current Visit: No Qualifiers: Coronary Disease-Associated Artery/Lesion type: [place] artery [place] vs. transplanted heart: [place] heart Associated angina: without angina Qualified Code(s): I25.10 - Atherosclerotic heart disease of [place] coronary artery without angina pectoris (4) Diabetes Status: Chronic Current Visit: No Qualifiers: Diabetes mellitus type: type 2 Diabetes mellitus complication status: with kidney complications Diabetes mellitus complication detail: with chronic kidney disease Chronic kidney disease stage: on chronic dialysis (5) ESRD (end stage renal disease) Status: Chronic Current Visit: No (6) Hypertension Status: Chronic Current Visit: No Qualifiers: Hypertension type: essential hypertension Qualified Code(s): I10 - Essential (primary) hypertension Internal Medicine - PN: Subj Interval history: He is complaining of pain in the left thigh which gets better after he gets IV antibiotics. He denies any chest pain or shortness of breath Exam (Progress Note) - Constitutional Vitals: Period Temp Pulse Resp BP Sys/Nelson Pulse Ox Last 24 Hr 97.3 F-98.9 F 63-68 16-20 156-192/72-92 95-100 Exam: Examination: GENERAL: No acute distress NECK: Neck is supple. CVS: Regular rate and rhythm. S1 and S2 are normal. RESPIRATORY: Lungs are clear. ABDOMEN: Soft and nontender. EXT: No edema. Peripheral pulses are present. PATHOLOGY TECHNOLOGIST: Patient is awake, alert and oriented to time place and person. SKIN: Warm and dry. Skin around abscesses look okay MSK: No calf or thigh tenderness Results - Labs CBC & BMP: 10/03/16 05:29 10/03/16 05:29 Quality Measures - VTE Contraindication to Mechanical VTE Prophylaxis: Ischemic Vascular Disease
[2016-10-04] MEDS ORDERED: traMADol 50 MG TABLET PO PRN (09:56)
--- NOTE | 2016-10-04 12:05 | Infectious Disease Consult ---
Assessment and Plan (1) Abscess of multiple sites Status: Acute Assessment and plan: MSSA cultured from these abscesses. Fortunately does not seem as if there is associated bloodstream infection. Infection seems to be significantly improved following I&D with minimal induration remaining. Cephalexin 500 mg Recommendations: We can de-escalate from Zosyn to Cephalexin 500 mg p.o. daily. Patient can continue this for about 1 week. Wound care. Thank you very much for the consult. Call again as needed. Current Visit: Yes (2) Coronary artery disease Status: Chronic Current Visit: No Qualifiers: Coronary Disease-Associated Artery/Lesion type: [place] artery [place] vs. transplanted heart: [place] heart Associated angina: without angina Qualified Code(s): I25.10 - Atherosclerotic heart disease of [place] coronary artery without angina pectoris (3) Diabetes Status: Chronic Current Visit: No Qualifiers: Diabetes mellitus type: type 2 Diabetes mellitus complication status: with kidney complications Diabetes mellitus complication detail: with chronic kidney disease Chronic kidney disease stage: on chronic dialysis (4) ESRD (end stage renal disease) Status: Chronic Current Visit: No (5) Hypertension Status: Chronic Current Visit: No Qualifiers: Hypertension type: essential hypertension Qualified Code(s): I10 - Essential (primary) hypertension History of Present Illness Chief complaint: Abscesses History of present illness: Mr. Grey is a 65 year old male with multiple comorbidities including end- stage renal disease on hemodialysis was admitted to hospital 2 days ago after he was found to be confused by his family. When he came in he was noted to have an abscess to the right anterior chest wall, and also right axilla. He underwent I&D and staph aureus was cultured. I am asked to assist with antibiotics. He has been on Zosyn here. Patient has not had any fever. Mental status has come back to baseline reportedly. Home Medications Medication Instructions Recorded Confirmed Type Aspirin EC Tab 81 mg PO DAILY tablet 01/13/16 10/02/16 Rx Carvedilol [Coreg] 25 mg PO BID #60 tablet 01/13/16 10/02/16 Rx Clopidogrel [Plavix] 75 mg PO DAILY #30 tablet 01/13/16 10/02/16 Rx Rosuvastatin [Crestor] 20 mg PO BEDTIME #30 tablet 01/13/16 10/02/16 Rx Omeprazole 20 mg PO DAILY 01/30/16 10/02/16 History cloNIDine TAB [Catapres Tab] 0.2 mg PO BID 01/30/16 10/02/16 History Cyanocobalamin/Folic AC/Vit B6 1 tablet PO DAILY 02/10/16 10/02/16 History [Virt-Isiah Forte Tablet] Tamsulosin [Flomax] 0.4 mg PO DAILY 02/10/16 10/02/16 History NIFEdipine XL TAB [Procardia Xl] 60 mg PO DAILY #30 tablet 02/15/16 10/02/16 Rx Fenofibrate [Fenofibrate] 160 mg PO DAILY 10/02/16 10/02/16 History Insulin Aspart Prot/Asp 70/30 55 unit SUBCUT QAM 10/02/16 10/02/16 History [NovoLOG Mix 70/30] Insulin Aspart Prot/Asp 70/30 60 units SUBCUT BEDTIME 10/02/16 10/02/16 History [NovoLOG Mix 70/30] Allergies Allergy/AdvReac Type Severity Reaction Status Date / Time No Known Allergies Allergy Verified 01/07/16 08:27 12 point system: reviewed and no additional remarkable complaints except as stated (Per HPI) Medical,Surgical,& Family Hx - Medical History Cardio: History of: CHF, CAD (LAD stent x 2 12/28), Hypertension No history of: [place] Psychological: No history of: Depression Neurology: History of: Cerebrovascular Accident No history of: Dementia, Seizures, Vertigo HEENT: History of: Eye Problem (cataract surgery x 2), Glaucoma Endocrine: History of: Diabetes Mellitus (IDDM), Dyslipidemia Respiratory: History of: Obstructive Sleep Apnea (pt states he does not wear Cpap) Renal: History of: Dialysis (M-W-F; left tessio), Renal Failure, Renal Problems Genitourinary: History of: Kidney Stones Gastrointestinal: History of: GERD, Polyps No history of: Gastrointestinal Bleed Other: History of: Miscellaneous Medical Problems (avg declot jan 2016) - Surgical History Cardiac Surgeries: Sugical HX of: Cardiac Catheterization (PCI of LAD 12/28) Thoracic Surgeries: Patient denies;: Organ Transplant Neurologic Surgeries: Patient denies: Neurologic Surgery HEENT Surgeries: Surgical HX of: Eye Surgery (CATARACT REMOVAL LEFT EYE) Abdominal Surgeries: Surgical HX of: Abdominal Surgery (COLECTOMY), Appendectomy , Colonoscopy (scheduled for another follow up cscope next month) - Family History Family History: Reports;: Family Diabetes (BROTHER AND SISTER), Family Heart Disease, Family Hypertension, Family Stroke (father) - Social History Smoking Status: Never smoker Frequency of Alcohol Use: None Type of Drug Use: None Infectious Disease Exam H&P - Constitutional Vitals: Vital Signs Temp Pulse Resp BP Pulse Ox 97.8 F 63 20 177/72 100 10/04/16 08:00 10/04/16 08:00 10/04/16 08:00 10/04/16 08:00 10/04/16 08:00 Intake and Output 10/03/16 10/04/16 10/04/16 23:59 07:59 15:59 Intake Total 340 / 340 100 / 100 Balance 340 / 340 100 / 100 Intake: IV 100 / 100 100 / 100 Zosyn 3,375 mg In Ns 100 100 / 100 100 / 100 ml @ 25 mls/hr IV Q12H SARAI Rx#:[id number] Oral 240 / 240 0 / 0 Other: Voiding Method Toilet # Voids 2 0 # Bowel Movements 1 Weight 108.862 kg Patient Weight 10/04/16 23:59 Weight 108.862 kg Exam: General: Patient comfortable, getting dialysis at the time I saw him by right subclavian tunneled dialysis catheter HEENT: Mucous membranes pink and moist, anicteric acyanotic, OCHOA, no oral exudates Neck: Supple, no thyroid gland enlargement Respiratory system: Breath sounds vesicular, no crepitations or wheezes Cardiovascular: Normal S1 and S2, no murmurs appreciated Abdomen: Normal bowel sounds, soft nontender throughout, no organomegaly or mass Genitourinary: No suprapubic pain or bladder distention Extremities: no edema MS: About 1.5 cm area of induration to the right upper chest wall with no associated erythema, no pus expressed from incision which appears to be healing. Indurated area to right axilla again without expression of pus, mildly tender to touch. Skin: No rash Reports - Labs CBC & BMP: 10/03/16 05:29 10/03/16 05:29 Labs: Laboratory Results - last 24 hr 10/03/16 10/03/16 10/04/16 16:17 20:03 05:31 POC Glucose 174 H 87 33 L* 10/04/16 10/04/16 06:06 08:02 POC Glucose 130 H 139 H - Reports Microbiology: Microbiology 10/02/16 13:00 Wound Culture - Final Axilla - Right Staphylococcus aureus 10/02/16 08:15 Wound Culture - Final Chest - Abscess Staphylococcus aureus
[2016-10-04] MEDS: PIPERACILLIN/TAZOBACTAM 3,375 MG in SODIUM CHLORIDE 0.9% 100 ML IV SCH (13:04)
[2016-10-04] MEDS ORDERED: cephALEXin 500 MG CAPSULE PO SCH (18:00)
[2016-10-04] MEDS: ROSUVASTATIN 20 MG TABLET PO SCH (21:28)
--- NOTE | 2016-10-04 23:46 | Nephrology Progress Note ---
Nephrology - PN: Subj Interval history: He is awake and alert. He states he feels better overall. Exam (PN)-Nephrology - Vital Signs Vital signs: Period Temp Pulse Resp BP Sys/Nelson Pulse Ox Last 24 Hr 97.3 F-98.9 F 62-66 16-20 140-177/72-80 98-100 Exam: Gen.: Alert and oriented x3. ENT: Pupils equal round reactive to light. EOMs intact. Mucous membranes moist. Neck: Supple. No JVD or bruit. Cardiovascular: Regular rate and rhythm. No murmur rub or gallop Lungs: Clear Abdomen: Soft. Nontender. Positive bowel sounds. No organomegaly Extremities: No edema - Lab 10/03/16 05:29 10/03/16 05:29 Most recent lab results Calcium 8.6 MG/DL (8.5-10.1) 10/03/16 05:29 Assessment and Plan (1) ESRD (end stage renal disease) Status: Chronic Assessment and plan: 65-year-old man with: * ESRD. Seen during dialysis. Blood pressure stable * Altered mental status. Resolved * Abscess, chest wall and right axilla. He received a second dose of vancomycin in the ER. Zosyn has been started also. Culture shows MSSA * Diabetes mellitus * CAD. Prior stent placement * Cerebrovascular disease Current Visit: No (2) Abscess of multiple sites Status: Acute Current Visit: Yes (3) Change in mental status Status: Acute Current Visit: Yes (4) Coronary artery disease Status: Chronic Current Visit: No Qualifiers: Coronary Disease-Associated Artery/Lesion type: [place] artery [place] vs. transplanted heart: [place] heart Associated angina: without angina Qualified Code(s): I25.10 - Atherosclerotic heart disease of [place] coronary artery without angina pectoris (5) Diabetes Status: Chronic Current Visit: No Qualifiers: Diabetes mellitus type: type 2 Diabetes mellitus complication status: with kidney complications Diabetes mellitus complication detail: with chronic kidney disease Chronic kidney disease stage: on chronic dialysis (6) Hypertension Status: Chronic Current Visit: No Qualifiers: Hypertension type: essential hypertension Qualified Code(s): I10 - Essential (primary) hypertension
[2016-10-05] MEDS: INSULIN ASPART PROTAMINE/ASPART 70/30 100 UNIT/ML SUBCUT SCH (08:51)
[2016-10-05] MEDS: CARVEDILOL 25 MG TABLET PO SCH (08:51)
[2016-10-05] MEDS: cloNIDine 0.1 MG TABLET PO SCH (08:51)
[2016-10-05] MEDS: CLOPIDOGREL 75 MG TABLET PO SCH (08:51)
[2016-10-05] MEDS: INSULIN REGULAR 100 UNIT/ML SUBCUT SCH (08:51)
[2016-10-05] MEDS: TAMSULOSIN 0.4 MG CAPSULE PO SCH (08:51)
[2016-10-05] MEDS: PANTOPRAZOLE 40 MG TABLET PO SCH (08:52)
[2016-10-05 08:53] VITALS: BP 158/82
--- NOTE | 2016-10-05 09:06 | Discharge Summary ---
Hospital Course - Hospital Course Hospital Course: Patient is a 65-year-old male with history of coronary artery disease, insulin- dependent diabetes, hyperlipidemia, end-stage renal disease on dialysis 3 times a week, hyperlipidemia who was admitted with change in mental status and not feeling right. Patient was admitted and blood cultures were done. It was thought that patient had encephalopathy secondary to infectious or my metabolic reasons. His CT scan was negative. He was started on dialysis. He received vancomycin with his dialysis. This seemed to improve his mental status back to normal. He had 3 areas of abscesses on his chest wall and right axilla. Dr. Grossman the third incised them and the culture grew staph aureus sensitive to Keflex. Patient was also seen in consultation by Dr. Fowler. She has recommended tyson flex for about 10 days. He will see Dr. Grossman the third for follow-up of his abscesses. He is going to be discharged home. I will see him back in office in 1 week with TCM. Diagnosis - Discharge Diagnosis (1) Change in mental status Status: Acute (2) Abscess of multiple sites Status: Acute (3) Coronary artery disease Status: Chronic (4) Diabetes Status: Chronic (5) ESRD (end stage renal disease) Status: Chronic (6) Hypertension Status: Chronic Discharge Plan - Discharge Data Disposition: Disch To Home/Self Care Condition at Discharge: Stable Discharge Diet: diabetic diet Activity: resume usual activities as tolerated - Discharge Medications New cephALEXin [Keflex] 500 mg PO 1800 #10 capsule cloNIDine TAB [Catapres Tab] 0.1 mg PO TID #90 tablet NIFEdipine XL TAB [Procardia Xl] 90 mg PO DAILY #30 tablet Continue Aspirin EC Tab 81 mg PO DAILY tablet Carvedilol [Coreg] 25 mg PO BID #60 tablet Clopidogrel [Plavix] 75 mg PO DAILY #30 tablet Rosuvastatin [Crestor] 20 mg PO BEDTIME #30 tablet Insulin Aspart Prot/Asp 70/30 [NovoLOG Mix 70/30] 55 unit SUBCUT QAM Insulin Aspart Prot/Asp 70/30 [NovoLOG Mix 70/30] 60 units SUBCUT BEDTIME Omeprazole 20 mg PO DAILY Tamsulosin [Flomax] 0.4 mg PO DAILY Cyanocobalamin/Folic AC/Vit B6 [Virt-Isiah Forte Tablet] 1 tablet PO DAILY Fenofibrate 160 mg PO DAILY Discontinued cloNIDine TAB [Catapres Tab] 0.2 mg PO BID NIFEdipine XL TAB [Procardia Xl] 60 mg PO DAILY #30 tablet - Follow Up or Referral - Forms/Instructions Additional Discharge Instructions: Appointment in 1 week with TCM Exam - Constitutional Vitals: Period Temp Pulse Resp BP Sys/Nelson Pulse Ox Last 24 Hr 97.1 F-98.2 F 52-66 16-20 140-158/68-83 98-100 Exam: Examination: GENERAL: No acute distress NECK: Neck is supple. CVS: Regular rate and rhythm. S1 and S2 are normal. RESPIRATORY: Lungs are clear. ABDOMEN: Soft and nontender. EXT: No edema. Peripheral pulses are present. [employer]: Patient is awake, alert and oriented to time place and person. SKIN: Warm and dry. MSK: No calf or thigh tenderness Discharge Results Procedures and tests throughout hospitalization: Pending Orders 10/01/16 15:03 Blood Culture Stat Labs on day of discharge: Labs from last 24 hours 10/05/16 10/04/16 10/04/16 08:14 20:23 15:43 POC Glucose 52 L 164 H 175 H 10/04/16 12:15 POC Glucose 90 Preliminary micro results at discharge 10/01/16 15:03 Blood Culture - Preliminary Blood No growth at 3 days 10/01/16 15:03 Blood Culture - Preliminary Blood No growth at 3 days DS: Provider Date of admission: 10/01/16 16:33 Primary care physician: Steve Oleary MD Attending physician on admission: Steve Oleary MD Consults: 10/02/16 08:17 Consult to Physician [CONS] Routine Comment: dialysis pt Consulting Provider: Abdulaziz Duncan Consult to Specialist Group: Nephrology Person Notified: Alejandrina Date Notified: 10/02/16 Time Notified: 08:55 10/02/16 08:29 Consult to Physician [CONS] Routine Comment: Abscesses in the right chest wall and right axilla Consulting Provider: Denis Nuñez Consult to Specialist Group: Surgery Person Notified: Dionna Date Notified: 10/02/16 Time Notified: 09:00 10/02/16 08:30 Consult to Physician [CONS] Routine Comment: Abscesses in chest wall, change in mental status Consulting Provider: Lauren Juarez Consult Notification Comment: left msg at 0905 10/04/16 09:57 Consult to Physical Therapy [CONS] Routine Reason for Physical Therapy: Evaluate and Treat Consult Comment: pt c/o left hip/thigh pain, please eval ambulation 10/04/16 12:11 Consult to Pharmacy [CONS] Routine Reason for Pharmacy Consult: Other Comment: Please order cephalexin 500mg daily at 6pm (renal dose) Discharging clinician: Steve Oleary MD
--- NOTE | 2016-10-05 23:51 | Nephrology Progress Note ---
Nephrology - PN: Subj Interval history: No new symptoms today. Mental status normal Exam (PN)-Nephrology - Vital Signs Vital signs: Period Temp Pulse Resp BP Sys/Nelson Pulse Ox Last 24 Hr 97.1 F-97.9 F 60-61 18-20 148-158/82-83 99-99 Exam: ENT: Normal Cardiovascular: Regular rate and rhythm. No murmur rub or gallop Lungs: Clear Extremities: No edema - Lab 10/03/16 05:29 10/03/16 05:29 Most recent lab results Calcium 8.6 MG/DL (8.5-10.1) 10/03/16 05:29 Assessment and Plan (1) ESRD (end stage renal disease) Status: Chronic Assessment and plan: 65-year-old man with: * ESRD. Dialysis MWF * Altered mental status. Resolved * Abscess, chest wall and right axilla. Continue p.o. antibiotics. Vancomycin will be redosed during dialysis tomorrow * Diabetes mellitus * CAD. Prior stent placement * Cerebrovascular disease (2) Abscess of multiple sites Status: Acute (3) Change in mental status Status: Acute (4) Coronary artery disease Status: Chronic Qualifiers: Coronary Disease-Associated Artery/Lesion type: [place] artery [place] vs. transplanted heart: [place] heart Associated angina: without angina Qualified Code(s): I25.10 - Atherosclerotic heart disease of [place] coronary artery without angina pectoris (5) Diabetes Status: Chronic Qualifiers: Diabetes mellitus type: type 2 Diabetes mellitus complication status: with kidney complications Diabetes mellitus complication detail: with chronic kidney disease Chronic kidney disease stage: on chronic dialysis (6) Hypertension Status: Chronic Qualifiers: Hypertension type: essential hypertension Qualified Code(s): I10 - Essential (primary) hypertension Specialty Discharge - Follow Up or Referrals Follow up with: Charbel Grossman III., MD [Physician] - 10/11/16 10:30 am Steve Oleary MD [Primary Care Provider] - 10/11/16 2:15 pm
== END 2016-10-05 11:20 | disposition home or self-care (01) | DRG 602 ==
LOC: N.ED 14:19 → N.EDINP 16:33 → N.TELES 18:40
PROVIDERS: ADMIT Internal Medicine; ATTEND Internal Medicine

== ENCOUNTER 2016-12-23 20:30 | Inpatient (IN) ==
[2016-12-23] MEDS ORDERED: ONDANSETRON 4 MG/2 ML VIAL IV STA (21:43)
[2016-12-23] MEDS ORDERED: NITROGLYCERIN 2% OINT 1 INCH/GM PACK TOP STA (21:43)
[2016-12-23] MEDS ORDERED: FUROSEMIDE 100 MG/10 ML VIAL IV STA (21:43)
[2016-12-23] MEDS ORDERED: methylPREDNISolone SOD SUC 125 MG/2 ML VIAL IV STA (21:43)
[2016-12-23] MEDS ORDERED: ALBUTEROL 2.5 MG/3 ML NEB RESP TX SCH (22:00)
[2016-12-23 22:21] LABS: ABG HCO3 28.6 MMOL/L (20-26); ABG Oxygen Saturation 98.9 % (95-100); ABG PCO2 43.3 MM HG (35-48); ABG PH 7.438 (7.35-7.45); ABG TCO2 29.9 MMOL/L (23-27); Allen Test Positive
[2016-12-23 23:37] LABS: Alanine Aminotransferase 34 U/L (16-61); Albumin 3.7 G/DL (3.4-5.0); Alkaline Phosphatase 67 U/L (45-117); Aspartate Amino Transferase 26 U/L (0-37); Bilirubin,Total < 0.39 MG/DL (0.2-1.0); Blood Urea Nitrogen 36 MG/DL (7-18); Calcium 8.1 MG/DL (8.5-10.1); Glucose 262 MG/DL (74-106); Magnesium 2.1 MG/DL (1.8-2.4); Osmolality,Calculated 289.8 MOS/KG (273-304); Sodium 137 MMOL/L (136-145); Troponin I Only 0.018 NG/ML (0.00-0.045)
[2016-12-23] MEDS ORDERED: hydrALAZINE 20 MG/1 ML VIAL IV STA (23:50)
[2016-12-23 23:52] LABS: Basophils % 0.4 % (0.0-0.8); Eosinophils # 0.1 10*3/uL (0.0-0.87); Eosinophils % 2.5 % (0.00-10.9); Hematocrit 23.2 VOL% (42.0-52.0); Hemoglobin 7.9 GM/DL (14.0-18.0); Immature Granulocytes % 0.7 %; Immature Granulocytes Absolute 0.04 #; Mean Corpuscular HGB Conc 34.1 GM/DL (32-36); Mean Corpuscular Hemoglobin 30 PG (27-34); Mean Corpuscular Volume 87.2 FL (87-102); Mean Platelet Volume 11.4 FL (9.6-12.0); Monocytes # 0.4 10*3/uL (0.11-0.8); Monocytes % 6.9 % (1.7-12.7); Neutrophils # 2.9 10*3/uL (1.4-7.4); Neutrophils % 52.5 % (38.7-73.9); Platelet Count 166 T/CUMM (130-400); Red Blood Count 2.66 MC/CUMM (3.8-5.5); Red Cell Distribution Width 15.6 % (9.3-17.3); White Blood Count 5.5 T/CUMM (4-12)
[2016-12-23] MEDS ORDERED: FUROSEMIDE 20 MG/2 ML VIAL ONE (23:52)
[2016-12-23] MEDS ORDERED: FUROSEMIDE 40 MG/4 ML VIAL ONE (23:52)
[2016-12-23] MEDS ORDERED: ONDANSETRON 4 MG/2 ML VIAL ONE (23:52)
[2016-12-23] MEDS ORDERED: methylPREDNISolone SOD SUC 125 MG/2 ML VIAL ONE (23:52)
[2016-12-23] MEDS ORDERED: NITROGLYCERIN 2% OINT 1 INCH/GM PACK TOP ONE (23:52)
[2016-12-23 23:59] LABS: INR 1.1; PT Patient Result 11.9 SECS
[2016-12-24] MEDS ORDERED: hydrALAZINE 20 MG/1 ML VIAL ONE (00:53)
[2016-12-24] MEDS ORDERED: hydrALAZINE 20 MG/1 ML VIAL IV STA (01:41)
[2016-12-24] MEDS ORDERED: ALBUTEROL/IPRATROPIUM 3 ML NEB RESP TX PRN (04:18)
[2016-12-24] MEDS ORDERED: MORPHINE 2 MG/1 ML SYRINGE IV PRN (04:18)
[2016-12-24] MEDS ORDERED: SODIUM CHLORIDE 0.9% 1,000 ML IV SCH (04:18)
[2016-12-24] MEDS ORDERED: ONDANSETRON 4 MG/2 ML VIAL IV PRN (04:18)
[2016-12-24] MEDS ORDERED: GLUCAGON 1 MG VIAL IM PRN ×2 (04:18→08:15)
[2016-12-24] MEDS ORDERED: DEXTROSE 50% 25 GM/50 ML VIAL IV PRN ×2 (04:18→08:15)
[2016-12-24] MEDS: hydrALAZINE 20 MG/1 ML VIAL IV PRN ×2 (04:52→11:58)
[2016-12-24] MEDS ORDERED: cloNIDine 0.1 MG TABLET PO ONE (08:15)
[2016-12-24] MEDS ORDERED: cloNIDine 0.1 MG TABLET ONE ×2 (08:33→15:33)
[2016-12-24] MEDS ORDERED: INSULIN REGULAR 100 UNIT/ML ONE ×3 (08:34→15:35)
[2016-12-24] MEDS: PANTOPRAZOLE 40 MG TABLET PO SCH (08:45)
[2016-12-24] MEDS: INSULIN REGULAR 100 UNIT/ML SUBCUT SCH ×4 (08:45→21:05)
[2016-12-24] MEDS: CARVEDILOL 25 MG TABLET PO SCH ×2 (10:13→21:04)
[2016-12-24] MEDS: FENOFIBRATE 160 MG TABLET PO SCH (10:13)
[2016-12-24] MEDS: CLOPIDOGREL 75 MG TABLET PO SCH (10:13)
[2016-12-24] MEDS: TAMSULOSIN 0.4 MG CAPSULE PO SCH (10:14)
[2016-12-24] MEDS: ASPIRIN EC 81 MG TABLET PO SCH (10:14)
[2016-12-24] MEDS: INSULIN ASPART PROTAMINE/ASPART 70/30 100 UNIT/ML SUBCUT SCH ×2 (10:15→21:05)
[2016-12-24] MEDS: cloNIDine 0.1 MG TABLET PO SCH ×2 (15:36→21:04)
[2016-12-24] MEDS: FOLIC AC PO SCH (18:34)
[2016-12-24] MEDS: CYANOCOBALAMIN PO SCH (18:34)
[2016-12-24] MEDS: VIT B6 PO SCH (18:34)
[2016-12-24] MEDS ORDERED: HEPARIN 10,000 UNIT/10 ML VIAL IV PRN (18:38)
[2016-12-24] MEDS: ROSUVASTATIN 20 MG TABLET PO SCH (21:04)
[2016-12-25 06:07] LABS: Basophils % 0.1 % (0.0-0.8); Eosinophils # 0.1 10*3/uL (0.0-0.87); Hematocrit 22.8 VOL% (42.0-52.0); Hemoglobin 7.6 GM/DL (14.0-18.0); Immature Granulocytes % 0.8 %; Immature Granulocytes Absolute 0.06 #; Lymphocytes # 2.2 10*3/uL (1.4-4.0); Mean Corpuscular HGB Conc 33.3 GM/DL (32-36); Mean Corpuscular Hemoglobin 29 PG (27-34); Mean Platelet Volume 12.1 FL (9.6-12.0); Monocytes # 0.5 10*3/uL (0.11-0.8); Monocytes % 7.1 % (1.7-12.7); Neutrophils # 4.5 10*3/uL (1.4-7.4); Platelet Count 161 T/CUMM (130-400); Red Blood Count 2.62 MC/CUMM (3.8-5.5); White Blood Count 7.3 T/CUMM (4-12)
[2016-12-25 06:50] LABS: Albumin 3.4 G/DL (3.4-5.0); Bilirubin,Total 0.4 MG/DL (0.2-1.0); Calcium 7.9 MG/DL (8.5-10.1); Magnesium 2.1 MG/DL (1.8-2.4); Osmolality,Calculated 290.7 MOS/KG (273-304); Potassium 3.9 MMOL/L (3.5-5.1); Risk Ratio 2.69; Thyroid Stimulating Hormone 1.64 uIU/ml (0.358-3.74); Total Protein 6.5 G/DL (6.4-8.3)
[2016-12-25] MEDS: INSULIN ASPART PROTAMINE/ASPART 70/30 100 UNIT/ML SUBCUT SCH ×2 (07:13→21:26)
[2016-12-25] MEDS: INSULIN REGULAR 100 UNIT/ML SUBCUT SCH ×4 (07:22→21:24)
[2016-12-25] MEDS: CLOPIDOGREL 75 MG TABLET PO SCH (08:12)
[2016-12-25] MEDS: CARVEDILOL 25 MG TABLET PO SCH ×2 (08:12→21:22)
[2016-12-25] MEDS: FENOFIBRATE 160 MG TABLET PO SCH (08:12)
[2016-12-25] MEDS: cloNIDine 0.1 MG TABLET PO SCH ×3 (08:13→21:21)
[2016-12-25] MEDS: TAMSULOSIN 0.4 MG CAPSULE PO SCH (08:13)
[2016-12-25] MEDS: PANTOPRAZOLE 40 MG TABLET PO SCH (08:13)
[2016-12-25] MEDS: ASPIRIN EC 81 MG TABLET PO SCH (08:13)
[2016-12-25] MEDS ORDERED: NON-FORMULARY MEDICATION (Omeprazole [Omeprazole] 20 MG) PO SCH (09:00)
[2016-12-25] MEDS: FOLIC AC PO SCH (09:03)
[2016-12-25] MEDS: CYANOCOBALAMIN PO SCH (09:03)
[2016-12-25] MEDS: VIT B6 PO SCH (09:03)
[2016-12-25] MEDS ORDERED: VANCOMYCIN INJ 1,000 MG in SODIUM CHLORIDE 0.9% 250 ML IV ONE ×2 (09:44→11:00)
[2016-12-25] MEDS: ROSUVASTATIN 20 MG TABLET PO SCH (21:21)
[2016-12-26] MEDS: INSULIN ASPART PROTAMINE/ASPART 70/30 100 UNIT/ML SUBCUT SCH (08:43)
[2016-12-26] MEDS: INSULIN REGULAR 100 UNIT/ML SUBCUT SCH ×2 (08:43→12:24)
[2016-12-26 08:53] LABS: Basophils % 0.5 % (0.0-0.8); Eosinophils # 0.2 10*3/uL (0.0-0.87); Eosinophils % 2.1 % (0.00-10.9); Hematocrit 34.1 VOL% (42.0-52.0); Hemoglobin 11.7 GM/DL (14.0-18.0); Immature Granulocytes % 1.1 %; Immature Granulocytes Absolute 0.09 #; Lymphocytes # 2.1 10*3/uL (1.4-4.0); Lymphocytes % 24.9 % (21.2-54.2); Mean Corpuscular HGB Conc 34.3 GM/DL (32-36); Mean Corpuscular Hemoglobin 30 PG (27-34); Monocytes # 0.6 10*3/uL (0.11-0.8); Monocytes % 6.7 % (1.7-12.7); NRBC # 0.02 10*3/uL; Neutrophils # 5.5 10*3/uL (1.4-7.4); Neutrophils % 64.7 % (38.7-73.9); Platelet Count 172 T/CUMM (130-400); Red Blood Count 3.92 MC/CUMM (3.8-5.5); White Blood Count 8.5 T/CUMM (4-12)
[2016-12-26] MEDS: TAMSULOSIN 0.4 MG CAPSULE PO SCH (09:16)
[2016-12-26] MEDS: FENOFIBRATE 160 MG TABLET PO SCH (09:16)
[2016-12-26] MEDS: CLOPIDOGREL 75 MG TABLET PO SCH (09:16)
[2016-12-26] MEDS: CARVEDILOL 25 MG TABLET PO SCH (09:16)
[2016-12-26] MEDS: PANTOPRAZOLE 40 MG TABLET PO SCH (09:16)
[2016-12-26] MEDS: ASPIRIN EC 81 MG TABLET PO SCH (09:16)
[2016-12-26] MEDS: cloNIDine 0.1 MG TABLET PO SCH (09:16)
[2016-12-26] MEDS: CYANOCOBALAMIN PO SCH (09:19)
[2016-12-26] MEDS: VIT B6 PO SCH (09:19)
[2016-12-26] MEDS: FOLIC AC PO SCH (09:19)
[2016-12-26 11:07] VITALS: BP 173/84
== END 2016-12-26 12:45 | disposition home or self-care (01) | DRG 291 ==
LOC: N.ED 20:30 → N.EDINP 12-24 01:52 → N.4E 12-24 02:59
PROVIDERS: ADMIT Internal Medicine; ATTEND Internal Medicine

== ENCOUNTER 2018-01-04 11:50 | Inpatient (IN) ==
[2018-01-04] MEDS ORDERED: NITROGLYCERIN SL 0.4 MG TABLET SL STA ×2 (12:54→12:55)
[2018-01-04] MEDS ORDERED: ONDANSETRON 4 MG/2 ML VIAL IV STA (12:56)
[2018-01-04 13:01] LABS: Basophils % 0.3 % (0.0-0.8); Eosinophils # 0.1 10*3/uL (0.0-0.87); Eosinophils % 0.9 % (0.00-10.9); Hematocrit 34.4 VOL% (42.0-52.0); Hemoglobin 11.3 GM/DL (14.0-18.0); Immature Granulocytes % 0.5 %; Immature Granulocytes Absolute 0.04 #; Lymphocytes % 12.5 % (21.2-54.2); Mean Corpuscular HGB Conc 32.8 GM/DL (32-36); Mean Corpuscular Hemoglobin 29 PG (27-34); Mean Corpuscular Volume 88.9 FL (87-102); Mean Platelet Volume 12.3 FL (9.6-12.0); Monocytes # 0.6 10*3/uL (0.11-0.8); Monocytes % 8.2 % (1.7-12.7); Neutrophils # 6.1 10*3/uL (1.4-7.4); Neutrophils % 77.6 % (38.7-73.9); Platelet Count 101 T/CUMM (130-400); Red Blood Count 3.87 MC/CUMM (3.8-5.5); Red Cell Distribution Width 17.2 % (9.3-17.3); White Blood Count 7.9 T/CUMM (4-12)
[2018-01-04 13:14] LABS: INR 1.1; PT Patient Result 11.8 SECS; Partial Thromboplastin Time 27.3 SECS (0-40)
[2018-01-04] MEDS ORDERED: DEXTROSE 50% 25 GM/50 ML SYRINGE IV ONE (13:15)
[2018-01-04 13:20] LABS: Bilirubin,Total 0.7 MG/DL (0.2-1.0); Calcium 8.8 MG/DL (8.5-10.1); Osmolality,Calculated 279.5 MOS/KG (273-304); Potassium 3.7 MMOL/L (3.5-5.1); Total Protein 8.2 G/DL (6.4-8.3)
[2018-01-04] MEDS ORDERED: DEXTROSE 50% 25 GM/50 ML VIAL IV STA (13:31)
[2018-01-04] MEDS ORDERED: hydrALAZINE 20 MG/1 ML VIAL IV STA (13:44)
[2018-01-04] MEDS ORDERED: AZITHROMYCIN INJ 1,000 MG in SODIUM CHLORIDE 0.9% 250 ML IV STA (13:59)
[2018-01-04] MEDS ORDERED: ACETAMINOPHEN 325 MG/10.15 ML UDCUP PO STA (13:59)
[2018-01-04] MEDS ORDERED: LACTATED RINGERS 1,000 ML IV SCH ×2 (14:00→16:28)
[2018-01-04] MEDS ORDERED: VANCOMYCIN INJ 1,000 MG in SODIUM CHLORIDE 0.9% 250 ML IV STA (14:01)
[2018-01-04] MEDS ORDERED: cefTRIAXone 2,000 MG in SODIUM CHLORIDE 0.9% 100 ML IV STA (14:36)
[2018-01-04] MEDS: NITROGLYCERIN SL 0.4 MG TABLET SL STA ×2 (15:48→23:30)
[2018-01-04] MEDS ORDERED: ONDANSETRON 4 MG/2 ML VIAL IV PRN (16:28)
[2018-01-04] MEDS ORDERED: GLUCAGON 1 MG VIAL IM PRN (16:28)
[2018-01-04] MEDS ORDERED: cefTRIAXone 1,000 MG in SODIUM CHLORIDE 0.9% 100 ML IV SCH (16:28)
[2018-01-04] MEDS ORDERED: ACETAMINOPHEN 500 MG TABLET PO PRN (16:28)
[2018-01-04] MEDS ORDERED: DEXTROSE 50% 25 GM/50 ML VIAL IV PRN (16:28)
[2018-01-04] MEDS ORDERED: PNEUMOCOCCAL VACCINE (13 VALENT) 0.5 ML SYRINGE IM ONE (16:44)
[2018-01-04] MEDS ORDERED: ALLOPURINOL 100 MG TABLET PO PRN (17:24)
[2018-01-04] MEDS ORDERED: LEVOFLOXACIN INJ 250 MG in PREMIX 1 EACH IV SCH (17:30)
[2018-01-04] MEDS: INSULIN LISPRO 100 UNIT/ML SUBCUT SCH ×2 (17:45→22:43)
[2018-01-04] MEDS ORDERED: VANCOMYCIN INJ 1,000 MG in SODIUM CHLORIDE 0.9% 250 ML IV ONE (18:00)
[2018-01-04] MEDS ORDERED: cefTRIAXone 500 MG in SYRINGE 1 EACH IV ONE (18:00)
[2018-01-04] MEDS: ALBUTEROL/IPRATROPIUM 3 ML NEB RESP TX SCH ×2 (18:59→23:13)
[2018-01-04] MEDS: CARVEDILOL 25 MG TABLET PO SCH (20:47)
[2018-01-04] MEDS: cloNIDine 0.1 MG TABLET PO SCH (20:47)
[2018-01-04] MEDS: methylPREDNISolone SOD SUC 40 MG/1 ML VIAL IV SCH (20:47)
[2018-01-04] MEDS: TAMSULOSIN 0.4 MG CAPSULE PO SCH (20:47)
[2018-01-05] MEDS: INSULIN LISPRO 100 UNIT/ML SUBCUT SCH ×6 (01:28→21:06)
[2018-01-05] MEDS: ALBUTEROL/IPRATROPIUM 3 ML NEB RESP TX SCH ×6 (03:21→23:34)
[2018-01-05 06:16] LABS: Basophils % 0.5 % (0.0-0.8); Eosinophils % 0.2 % (0.00-10.9); Hematocrit 30.7 VOL% (42.0-52.0); Hemoglobin 9.8 GM/DL (14.0-18.0); Immature Granulocytes % 0.5 %; Immature Granulocytes Absolute 0.03 #; Lymphocytes % 15.1 % (21.2-54.2); Mean Corpuscular HGB Conc 31.9 GM/DL (32-36); Mean Corpuscular Hemoglobin 29 PG (27-34); Mean Corpuscular Volume 91.4 FL (87-102); Mean Platelet Volume 12.8 FL (9.6-12.0); Monocytes # 0.4 10*3/uL (0.11-0.8); Neutrophils # 4.8 10*3/uL (1.4-7.4); Neutrophils % 76.7 % (38.7-73.9); Platelet Count 88 T/CUMM (130-400); Red Blood Count 3.36 MC/CUMM (3.8-5.5); Red Cell Distribution Width 17.3 % (9.3-17.3); White Blood Count 6.3 T/CUMM (4-12)
[2018-01-05 06:25] LABS: Calcium 8.1 MG/DL (8.5-10.1); Osmolality,Calculated 284.1 MOS/KG (273-304); Potassium 4.6 MMOL/L (3.5-5.1)
[2018-01-05 07:31] LABS: Anisocytosis 1+; Platelet Estimate Decreased; Target Cells Few
[2018-01-05 07:32] LABS: Basophilic Stippling Slight
[2018-01-05] MEDS ORDERED: LEVOFLOXACIN INJ 250 MG in PREMIX 1 EACH IV SCH (09:00)
[2018-01-05] MEDS: CALCIUM ACETATE 667 MG CAPSULE PO SCH ×3 (09:07→16:43)
[2018-01-05] MEDS: ASPIRIN EC 81 MG TABLET PO SCH (09:07)
[2018-01-05] MEDS: ROSUVASTATIN 20 MG TABLET PO SCH (09:07)
[2018-01-05] MEDS: cloNIDine 0.1 MG TABLET PO SCH ×3 (09:07→21:07)
[2018-01-05] MEDS: CARVEDILOL 25 MG TABLET PO SCH ×2 (09:08→16:44)
[2018-01-05] MEDS: FENOFIBRATE 160 MG TABLET PO SCH (09:08)
[2018-01-05] MEDS: methylPREDNISolone SOD SUC 40 MG/1 ML VIAL IV SCH ×2 (09:08→21:06)
[2018-01-05] MEDS: CLOPIDOGREL 75 MG TABLET PO SCH (09:08)
[2018-01-05] MEDS: AZITHROMYCIN INJ 500 MG in SODIUM CHLORIDE 0.9% 250 ML IV SCH (09:09)
[2018-01-05] MEDS: OLMESARTAN 20 MG TABLET PO SCH (13:19)
[2018-01-05] MEDS: cefTRIAXone 1,000 MG VIAL IM SCH (17:06)
[2018-01-05] MEDS: TAMSULOSIN 0.4 MG CAPSULE PO SCH (21:06)
[2018-01-05] MEDS: MULTIVITAMIN (BEROCCA) TABLET PO SCH (21:06)
[2018-01-06] MEDS: INSULIN LISPRO 100 UNIT/ML SUBCUT SCH ×5 (02:20→20:55)
[2018-01-06] MEDS: ALBUTEROL/IPRATROPIUM 3 ML NEB RESP TX SCH ×6 (03:54→23:01)
[2018-01-06 06:34] LABS: Basophils % 0.1 % (0.0-0.8); Eosinophils % 0.1 % (0.00-10.9); Hematocrit 30.3 VOL% (42.0-52.0); Hemoglobin 9.7 GM/DL (14.0-18.0); Immature Granulocytes % 0.8 %; Immature Granulocytes Absolute 0.06 #; Lymphocytes # 1.3 10*3/uL (1.4-4.0); Lymphocytes % 18.8 % (21.2-54.2); Mean Corpuscular Hemoglobin 29 PG (27-34); Mean Corpuscular Volume 89.1 FL (87-102); Mean Platelet Volume 13.7 FL (9.6-12.0); Monocytes # 0.5 10*3/uL (0.11-0.8); Monocytes % 7.6 % (1.7-12.7); Neutrophils # 5.1 10*3/uL (1.4-7.4); Neutrophils % 72.6 % (38.7-73.9); Platelet Count 86 T/CUMM (130-400); Red Cell Distribution Width 16.7 % (9.3-17.3); White Blood Count 7.1 T/CUMM (4-12)
[2018-01-06 07:14] LABS: Platelet Estimate Decreased
[2018-01-06 08:19] LABS: Albumin 3.1 G/DL (3.4-5.0); Bilirubin,Total 0.4 MG/DL (0.2-1.0); Calcium 8.3 MG/DL (8.5-10.1); Osmolality,Calculated 295.1 MOS/KG (273-304); Potassium 5.2 MMOL/L (3.5-5.1); Risk Ratio 2.43; Total Protein 7.4 G/DL (6.4-8.3); VLDL CHOLESTEROL 20.6 MG/DL
[2018-01-06] MEDS: methylPREDNISolone SOD SUC 40 MG/1 ML VIAL IV SCH ×2 (09:18→20:55)
[2018-01-06] MEDS: ROSUVASTATIN 20 MG TABLET PO SCH (09:19)
[2018-01-06] MEDS: ASPIRIN EC 81 MG TABLET PO SCH (09:19)
[2018-01-06] MEDS: CARVEDILOL 25 MG TABLET PO SCH ×2 (09:19→16:22)
[2018-01-06] MEDS: CALCIUM ACETATE 667 MG CAPSULE PO SCH ×3 (09:19→16:22)
[2018-01-06] MEDS: CLOPIDOGREL 75 MG TABLET PO SCH (09:19)
[2018-01-06] MEDS: OLMESARTAN 20 MG TABLET PO SCH (09:19)
[2018-01-06] MEDS: FENOFIBRATE 160 MG TABLET PO SCH (09:19)
[2018-01-06] MEDS: cloNIDine 0.1 MG TABLET PO SCH ×3 (09:20→20:55)
[2018-01-06] MEDS: AZITHROMYCIN INJ 500 MG in SODIUM CHLORIDE 0.9% 250 ML IV SCH (09:26)
[2018-01-06] MEDS: cefTRIAXone 1,000 MG VIAL IM SCH (16:49)
[2018-01-06] MEDS: MULTIVITAMIN (BEROCCA) TABLET PO SCH (20:55)
[2018-01-06] MEDS: TAMSULOSIN 0.4 MG CAPSULE PO SCH (20:55)
[2018-01-07] MEDS: INSULIN LISPRO 100 UNIT/ML SUBCUT SCH ×6 (01:10→20:29)
[2018-01-07] MEDS: ALBUTEROL/IPRATROPIUM 3 ML NEB RESP TX SCH ×6 (02:59→23:50)
[2018-01-07 05:41] LABS: Basophils % 0.1 % (0.0-0.8); Hematocrit 31.2 VOL% (42.0-52.0); Hemoglobin 9.9 GM/DL (14.0-18.0); Immature Granulocytes % 0.7 %; Immature Granulocytes Absolute 0.07 #; Lymphocytes # 1.7 10*3/uL (1.4-4.0); Lymphocytes % 17.4 % (21.2-54.2); Mean Corpuscular HGB Conc 31.7 GM/DL (32-36); Mean Corpuscular Hemoglobin 28 PG (27-34); Mean Corpuscular Volume 88.4 FL (87-102); Mean Platelet Volume 13.6 FL (9.6-12.0); Monocytes # 0.5 10*3/uL (0.11-0.8); Monocytes % 4.7 % (1.7-12.7); Neutrophils # 7.6 10*3/uL (1.4-7.4); Neutrophils % 77.1 % (38.7-73.9); Platelet Count 100 T/CUMM (130-400); Red Blood Count 3.53 MC/CUMM (3.8-5.5); Red Cell Distribution Width 16.6 % (9.3-17.3); White Blood Count 9.8 T/CUMM (4-12)
[2018-01-07 05:53] LABS: Albumin 3.1 G/DL (3.4-5.0); Bilirubin,Total 0.5 MG/DL (0.2-1.0); Calcium 7.9 MG/DL (8.5-10.1); Osmolality,Calculated 300.4 MOS/KG (273-304); Potassium 5.7 MMOL/L (3.5-5.1); Total Protein 7.5 G/DL (6.4-8.3)
[2018-01-07] MEDS: methylPREDNISolone SOD SUC 40 MG/1 ML VIAL IV SCH (08:30)
[2018-01-07] MEDS: OLMESARTAN 20 MG TABLET PO SCH (09:11)
[2018-01-07] MEDS: ASPIRIN EC 81 MG TABLET PO SCH (09:11)
[2018-01-07] MEDS: cloNIDine 0.1 MG TABLET PO SCH ×3 (09:11→20:29)
[2018-01-07] MEDS: CLOPIDOGREL 75 MG TABLET PO SCH (09:11)
[2018-01-07] MEDS: CALCIUM ACETATE 667 MG CAPSULE PO SCH ×3 (09:11→16:10)
[2018-01-07] MEDS: predniSONE 20 MG TABLET PO SCH (09:11)
[2018-01-07] MEDS: ROSUVASTATIN 20 MG TABLET PO SCH (09:11)
[2018-01-07] MEDS: AZITHROMYCIN INJ 500 MG in SODIUM CHLORIDE 0.9% 250 ML IV SCH (09:12)
[2018-01-07] MEDS: CARVEDILOL 25 MG TABLET PO SCH ×2 (09:12→16:09)
[2018-01-07] MEDS: FENOFIBRATE 160 MG TABLET PO SCH (09:20)
[2018-01-07] MEDS ORDERED: VANCOMYCIN INJ 750 MG in SODIUM CHLORIDE 0.9% 250 ML IV PRN (16:00)
[2018-01-07] MEDS ORDERED: VANCOMYCIN INJ 750 MG in SODIUM CHLORIDE 0.9% 250 ML IV SCH (17:00)
[2018-01-07] MEDS: cefTRIAXone 1,000 MG VIAL IM SCH (17:18)
[2018-01-07] MEDS: MULTIVITAMIN (BEROCCA) TABLET PO SCH (20:29)
[2018-01-07] MEDS: TAMSULOSIN 0.4 MG CAPSULE PO SCH (20:29)
[2018-01-08] MEDS: INSULIN LISPRO 100 UNIT/ML SUBCUT SCH ×3 (00:08→08:04)
[2018-01-08] MEDS: ALBUTEROL/IPRATROPIUM 3 ML NEB RESP TX SCH ×2 (02:33→07:18)
[2018-01-08 08:00] VITALS: BP 130/67
[2018-01-08] MEDS ORDERED: VANCOMYCIN INJ 750 MG in SODIUM CHLORIDE 0.9% 250 ML IV STA (08:18)
[2018-01-08] MEDS: ASPIRIN EC 81 MG TABLET PO SCH (08:32)
[2018-01-08] MEDS: predniSONE 20 MG TABLET PO SCH (08:32)
[2018-01-08] MEDS: CARVEDILOL 25 MG TABLET PO SCH (08:32)
[2018-01-08] MEDS: OLMESARTAN 20 MG TABLET PO SCH (08:33)
[2018-01-08] MEDS: CALCIUM ACETATE 667 MG CAPSULE PO SCH (08:33)
[2018-01-08] MEDS: FENOFIBRATE 160 MG TABLET PO SCH (08:33)
[2018-01-08] MEDS: CLOPIDOGREL 75 MG TABLET PO SCH (08:34)
[2018-01-08] MEDS: ROSUVASTATIN 20 MG TABLET PO SCH (08:34)
[2018-01-08] MEDS: AZITHROMYCIN INJ 500 MG in SODIUM CHLORIDE 0.9% 250 ML IV SCH (08:34)
[2018-01-08] MEDS: cloNIDine 0.1 MG TABLET PO SCH (08:34)
[2018-01-08] MEDS ORDERED: LACTULOSE 20 GM/30 ML UDCUP PO ONE (09:15)
[2018-01-10] MEDS ORDERED: predniSONE 10 MG TABLET PO SCH (09:00)
== END 2018-01-08 11:23 | disposition home or self-care (01) | DRG 193 ==
LOC: N.ED 11:50 → N.EDINP 14:28 → N.TELEN 15:00
PROVIDERS: ADMIT Internal Medicine; ATTEND Internal Medicine

== ENCOUNTER 2018-10-11 14:41 | Inpatient (IN) ==
[2018-10-11 15:47] LABS: Basophils % 0.6 % (0.0-0.8); Eosinophils # 0.3 10*3/uL (0.0-0.87); Eosinophils % 4.8 % (0.00-10.9); Hematocrit 35.4 VOL% (42.0-52.0); Hemoglobin 11.3 GM/DL (14.0-18.0); Immature Granulocytes % 0.4 %; Immature Granulocytes Absolute 0.03 #; Lymphocytes # 1.6 10*3/uL (1.4-4.0); Lymphocytes % 23.8 % (21.2-54.2); Mean Corpuscular HGB Conc 31.9 GM/DL (32-36); Mean Corpuscular Volume 89.8 FL (87-102); Monocytes % 6.3 % (1.7-12.7); NRBC # 0.02 10*3/uL; Neutrophils % 64.1 % (38.7-73.9); Platelet Count 167 T/CUMM (130-400); Red Blood Count 3.94 MC/CUMM (3.8-5.5); White Blood Count 6.9 T/CUMM (4-12)
[2018-10-11 16:01] LABS: INR 1.2; PT Patient Result 12.7 SECS (9.6-12.2); Partial Thromboplastin Time 30.6 SECS (20.8-36.0)
[2018-10-11 16:07] LABS: Albumin 3.3 G/DL (3.4-5.0); Bilirubin,Total 0.5 MG/DL (0.2-1.0); Calcium 8.2 MG/DL (8.5-10.1); Osmolality,Calculated 287.7 MOS/KG (273-304); Total Protein 6.9 G/DL (6.4-8.3)
[2018-10-11] MEDS ORDERED: ACETAMINOPHEN 325 MG TABLET PO PRN (16:39)
[2018-10-11] MEDS ORDERED: ONDANSETRON 4 MG/2 ML VIAL IV PRN (16:39)
[2018-10-11] MEDS ORDERED: GLUCAGON 1 MG VIAL IM PRN (16:39)
[2018-10-11] MEDS ORDERED: DEXTROSE 10% 25 GM/250 ML BAG IV PRN (16:39)
[2018-10-11] MEDS ORDERED: ALLOPURINOL 100 MG TABLET PO PRN (17:23)
[2018-10-11] MEDS ORDERED: CALCIUM ACETATE 667 MG CAPSULE PO SCH (17:23)
[2018-10-11] MEDS ORDERED: LABETALOL 20 MG/4 ML SYRINGE IV PRN (17:29)
[2018-10-11] MEDS: ENOXAPARIN 30 MG/0.3 ML SYRINGE SUBCUT SCH (18:33)
[2018-10-11] MEDS: CALCIUM ACETATE 667 MG CAPSULE PO SCH (18:36)
[2018-10-11] MEDS: INSULIN NPH/REGULAR 70/30 100 UNIT/ML SUBCUT SCH (18:37)
[2018-10-11] MEDS: FERROUS SULFATE 325 MG TABLET PO SCH (22:05)
[2018-10-11] MEDS: cloNIDine 0.1 MG TABLET PO SCH (22:05)
[2018-10-11] MEDS: MULTIVITAMIN (BEROCCA) TABLET PO SCH (22:05)
[2018-10-11] MEDS: INSULIN LISPRO 100 UNIT/ML SUBCUT SCH (22:06)
[2018-10-11] MEDS: CARVEDILOL 25 MG TABLET PO SCH (22:08)
[2018-10-12 05:32] LABS: Basophils % 0.4 % (0.0-0.8); Eosinophils # 0.3 10*3/uL (0.0-0.87); Eosinophils % 4.4 % (0.00-10.9); Hematocrit 34.9 VOL% (42.0-52.0); Immature Granulocytes % 0.3 %; Immature Granulocytes Absolute 0.02 #; Lymphocytes # 1.5 10*3/uL (1.4-4.0); Mean Corpuscular HGB Conc 31.5 GM/DL (32-36); Mean Corpuscular Volume 89.7 FL (87-102); Mean Platelet Volume 11.1 FL (9.6-12.0); Monocytes % 7.1 % (1.7-12.7); NRBC # 0.02 10*3/uL; Neutrophils % 66.8 % (38.7-73.9); Platelet Count 147 T/CUMM (130-400); Red Blood Count 3.89 MC/CUMM (3.8-5.5); Red Cell Distribution Width 19.8 % (9.3-17.3); White Blood Count 7.1 T/CUMM (4-12)
[2018-10-12 05:44] LABS: Calcium 8.5 MG/DL (8.5-10.1); Osmolality,Calculated 277.4 MOS/KG (273-304)
[2018-10-12 05:46] LABS: Risk Ratio 1.95; VLDL CHOLESTEROL 14.6 MG/DL
[2018-10-12] MEDS: TAMSULOSIN 0.4 MG CAPSULE PO SCH (08:19)
[2018-10-12] MEDS: CALCIUM ACETATE 667 MG CAPSULE PO SCH ×3 (08:19→17:23)
[2018-10-12] MEDS: ASPIRIN EC 81 MG TABLET PO SCH (08:19)
[2018-10-12] MEDS: CLOPIDOGREL 75 MG TABLET PO SCH (08:19)
[2018-10-12] MEDS: cloNIDine 0.1 MG TABLET PO SCH ×3 (08:20→22:16)
[2018-10-12] MEDS: FERROUS SULFATE 325 MG TABLET PO SCH ×2 (08:20→22:16)
[2018-10-12] MEDS: FENOFIBRATE 160 MG TABLET PO SCH (08:20)
[2018-10-12] MEDS: INSULIN NPH/REGULAR 70/30 100 UNIT/ML SUBCUT SCH ×2 (08:20→22:18)
[2018-10-12] MEDS: CARVEDILOL 25 MG TABLET PO SCH ×2 (08:20→17:23)
[2018-10-12] MEDS: PANTOPRAZOLE 40 MG TABLET PO SCH ×2 (08:20→09:29)
[2018-10-12] MEDS: ROSUVASTATIN 20 MG TABLET PO SCH (08:20)
[2018-10-12] MEDS: INSULIN LISPRO 100 UNIT/ML SUBCUT SCH ×4 (09:08→22:19)
[2018-10-12] MEDS: ENOXAPARIN 30 MG/0.3 ML SYRINGE SUBCUT SCH (17:23)
[2018-10-12] MEDS: MULTIVITAMIN (BEROCCA) TABLET PO SCH (22:16)
[2018-10-13] MEDS: CLOPIDOGREL 75 MG TABLET PO SCH (08:02)
[2018-10-13] MEDS: ASPIRIN EC 81 MG TABLET PO SCH (08:03)
[2018-10-13] MEDS: FERROUS SULFATE 325 MG TABLET PO SCH ×2 (08:03→21:54)
[2018-10-13] MEDS: PANTOPRAZOLE 40 MG TABLET PO SCH ×2 (08:03→08:14)
[2018-10-13] MEDS: ROSUVASTATIN 20 MG TABLET PO SCH (08:03)
[2018-10-13] MEDS: cloNIDine 0.1 MG TABLET PO SCH ×4 (08:03→21:55)
[2018-10-13] MEDS: CALCIUM ACETATE 667 MG CAPSULE PO SCH ×3 (08:03→17:27)
[2018-10-13] MEDS: CARVEDILOL 25 MG TABLET PO SCH ×2 (08:03→17:27)
[2018-10-13] MEDS: TAMSULOSIN 0.4 MG CAPSULE PO SCH (08:03)
[2018-10-13] MEDS: FENOFIBRATE 160 MG TABLET PO SCH (08:04)
[2018-10-13] MEDS: INSULIN LISPRO 100 UNIT/ML SUBCUT SCH ×4 (08:12→23:03)
[2018-10-13] MEDS: INSULIN NPH/REGULAR 70/30 100 UNIT/ML SUBCUT SCH ×2 (08:14→21:56)
[2018-10-13] MEDS: ENOXAPARIN 30 MG/0.3 ML SYRINGE SUBCUT SCH (17:27)
[2018-10-13] MEDS: MULTIVITAMIN (BEROCCA) TABLET PO SCH (21:55)
[2018-10-14] MEDS: INSULIN LISPRO 100 UNIT/ML SUBCUT SCH ×2 (12:37→16:30)
[2018-10-14] MEDS: CALCIUM ACETATE 667 MG CAPSULE PO SCH ×2 (12:37→16:49)
[2018-10-14] MEDS: CARVEDILOL 25 MG TABLET PO SCH ×2 (12:37→16:29)
[2018-10-14] MEDS: INSULIN NPH/REGULAR 70/30 100 UNIT/ML SUBCUT SCH (12:38)
[2018-10-14] MEDS: cloNIDine 0.1 MG TABLET PO SCH ×3 (12:38→16:29)
[2018-10-14] MEDS: FERROUS SULFATE 325 MG TABLET PO SCH (12:38)
[2018-10-14] MEDS: PANTOPRAZOLE 40 MG TABLET PO SCH ×2 (12:39→13:27)
[2018-10-14] MEDS: ASPIRIN EC 81 MG TABLET PO SCH (13:27)
[2018-10-14] MEDS: TAMSULOSIN 0.4 MG CAPSULE PO SCH (13:27)
[2018-10-14] MEDS: CLOPIDOGREL 75 MG TABLET PO SCH (13:28)
[2018-10-14] MEDS: ROSUVASTATIN 20 MG TABLET PO SCH (13:34)
[2018-10-14] MEDS: FENOFIBRATE 160 MG TABLET PO SCH (13:34)
[2018-10-14 15:35] VITALS: BP 198/82
[2018-10-14] MEDS: ENOXAPARIN 30 MG/0.3 ML SYRINGE SUBCUT SCH (16:31)
[2018-10-14] MEDS ORDERED: INSULIN NPH/REGULAR 70/30 100 UNIT/ML SUBCUT SCH (21:00)
== END 2018-10-14 18:18 | disposition home health service (06) | DRG 64 ==
LOC: N.ED 14:41 → N.EDINP 16:39 → N.TELEN 17:02
PROVIDERS: ADMIT Internal Medicine; ATTEND Internal Medicine

== ENCOUNTER 2018-11-30 19:40 | Inpatient (IN) ==
[2018-11-30] MEDS ORDERED: METOCLOPRAMIDE 10 MG/2 ML VIAL IV STA (21:46)
[2018-11-30] MEDS ORDERED: ONDANSETRON 4 MG/2 ML VIAL IV STA (21:46)
[2018-11-30] MEDS ORDERED: ALBUTEROL/IPRATROPIUM 3 ML NEB RESP TX STA (21:46)
[2018-11-30] MEDS ORDERED: hydrALAZINE 20 MG/1 ML VIAL IV STA (21:53)
[2018-11-30 22:30] LABS: Basophils % 0.4 % (0.0-0.8); Eosinophils # 0.1 10*3/uL (0.0-0.87); Eosinophils % 1.7 % (0.00-10.9); Hematocrit 33.3 VOL% (42.0-52.0); Hemoglobin 10.7 GM/DL (14.0-18.0); Immature Granulocytes % 0.3 %; Immature Granulocytes Absolute 0.02 #; Lymphocytes # 1.7 10*3/uL (1.4-4.0); Lymphocytes % 24.4 % (21.2-54.2); Mean Corpuscular HGB Conc 32.1 GM/DL (32-36); Mean Corpuscular Volume 88.8 FL (87-102); Mean Platelet Volume 12.9 FL (9.6-12.0); Monocytes % 5.6 % (1.7-12.7); Neutrophils % 67.6 % (38.7-73.9); Platelet Count 146 T/CUMM (130-400); Red Blood Count 3.75 MC/CUMM (3.8-5.5); Red Cell Distribution Width 18.2 % (9.3-17.3)
[2018-11-30] MEDS ORDERED: FUROSEMIDE 40 MG/4 ML VIAL IV STA (22:31)
[2018-11-30 22:50] LABS: Alanine Aminotransferase 24 U/L (16-61); Albumin 3.9 G/DL (3.4-5.0); Alkaline Phosphatase 76 U/L (45-117); Aspartate Amino Transferase 20 U/L (0-37); Blood Urea Nitrogen 38 MG/DL (7-18); Calcium 9.3 MG/DL (8.5-10.1); Estimated Glom Filtration Rate 8 ML/MIN; Glucose 265 MG/DL (74-106); Osmolality,Calculated 296.4 MOS/KG (273-304); Total Protein 8.1 G/DL (6.4-8.3); Troponin I 0.031 NG/ML (0.00-0.045)
[2018-11-30 22:56] LABS: INR 1.2; PT Patient Result 12.7 SECS (9.6-12.2); Partial Thromboplastin Time 27.6 SECS (20.8-36.0)
[2018-11-30] MEDS ORDERED: DEXTROSE 50% 25 GM/50 ML VIAL IV PRN (23:39)
[2018-11-30] MEDS ORDERED: ONDANSETRON 4 MG/2 ML VIAL IV PRN (23:39)
[2018-11-30] MEDS ORDERED: GLUCAGON 1 MG VIAL IM PRN (23:39)
[2018-12-01] MEDS ORDERED: CALCIUM ACETATE 667 MG CAPSULE PO SCH (01:08)
[2018-12-01] MEDS: FUROSEMIDE 40 MG/4 ML VIAL IV SCH ×2 (08:24→15:26)
[2018-12-01] MEDS: INSULIN NPH/REGULAR 70/30 100 UNIT/ML SUBCUT SCH (08:24)
[2018-12-01] MEDS: INSULIN REGULAR 100 UNIT/ML SUBCUT SCH ×4 (08:24→22:02)
[2018-12-01] MEDS: TAMSULOSIN 0.4 MG CAPSULE PO SCH (08:25)
[2018-12-01] MEDS: PANTOPRAZOLE 40 MG TABLET PO SCH (08:25)
[2018-12-01] MEDS: FENOFIBRATE 160 MG TABLET PO SCH (08:25)
[2018-12-01] MEDS: CLOPIDOGREL 75 MG TABLET PO SCH (08:25)
[2018-12-01] MEDS: ASPIRIN EC 81 MG TABLET PO SCH (08:25)
[2018-12-01] MEDS: CARVEDILOL 25 MG TABLET PO SCH ×2 (08:26→17:09)
[2018-12-01] MEDS: ALLOPURINOL 100 MG TABLET PO PRN (08:26)
[2018-12-01] MEDS: Sucroferric Oxyhydroxide [Velphoro] 500 MG PO SCH ×2 (08:36→21:27)
[2018-12-01] MEDS ORDERED: cloNIDine 0.1 MG TABLET PO SCH (09:00)
[2018-12-01] MEDS: ROSUVASTATIN 20 MG TABLET PO SCH (21:27)
[2018-12-01] MEDS: MULTIVITAMIN (BEROCCA) TABLET PO SCH (21:27)
[2018-12-02] MEDS: FUROSEMIDE 40 MG/4 ML VIAL IV SCH ×2 (08:24→17:05)
[2018-12-02] MEDS: INSULIN NPH/REGULAR 70/30 100 UNIT/ML SUBCUT SCH (08:36)
[2018-12-02] MEDS: INSULIN REGULAR 100 UNIT/ML SUBCUT SCH ×4 (08:36→21:42)
[2018-12-02] MEDS: Sucroferric Oxyhydroxide [Velphoro] 500 MG PO SCH ×2 (13:44→21:39)
[2018-12-02] MEDS: ASPIRIN EC 81 MG TABLET PO SCH (13:47)
[2018-12-02] MEDS: TAMSULOSIN 0.4 MG CAPSULE PO SCH (13:47)
[2018-12-02] MEDS: ALLOPURINOL 100 MG TABLET PO PRN (13:47)
[2018-12-02] MEDS: PANTOPRAZOLE 40 MG TABLET PO SCH (13:47)
[2018-12-02] MEDS: CLOPIDOGREL 75 MG TABLET PO SCH (13:47)
[2018-12-02] MEDS: CARVEDILOL 25 MG TABLET PO SCH ×2 (13:47→18:16)
[2018-12-02] MEDS: FENOFIBRATE 160 MG TABLET PO SCH (13:48)
[2018-12-02] MEDS: ROSUVASTATIN 20 MG TABLET PO SCH (21:39)
[2018-12-02] MEDS: MULTIVITAMIN (BEROCCA) TABLET PO SCH (21:40)
[2018-12-03] MEDS: INSULIN REGULAR 100 UNIT/ML SUBCUT SCH ×2 (09:08→12:15)
[2018-12-03] MEDS: Sucroferric Oxyhydroxide [Velphoro] 500 MG PO SCH (09:11)
[2018-12-03] MEDS: INSULIN NPH/REGULAR 70/30 100 UNIT/ML SUBCUT SCH (09:12)
[2018-12-03] MEDS: CLOPIDOGREL 75 MG TABLET PO SCH (09:13)
[2018-12-03] MEDS: TAMSULOSIN 0.4 MG CAPSULE PO SCH (09:13)
[2018-12-03] MEDS: PANTOPRAZOLE 40 MG TABLET PO SCH (09:13)
[2018-12-03] MEDS: ALLOPURINOL 100 MG TABLET PO PRN (09:13)
[2018-12-03] MEDS: FENOFIBRATE 160 MG TABLET PO SCH (09:13)
[2018-12-03] MEDS: CARVEDILOL 25 MG TABLET PO SCH (09:13)
[2018-12-03] MEDS: ASPIRIN EC 81 MG TABLET PO SCH (09:14)
[2018-12-03] MEDS: FUROSEMIDE 40 MG/4 ML VIAL IV SCH (09:21)
[2018-12-03] MEDS ORDERED: INFLUENZA VIRUS VACCINE 0.5 ML SYRINGE IM ONE (10:44)
[2018-12-03] MEDS ORDERED: PNEUMOCOCCAL VACCINE (13 VALENT) 0.5 ML SYRINGE IM ONE (10:46)
[2018-12-03] MEDS ORDERED: ACETAMINOPHEN 325 MG TABLET PO ONE (10:47)
[2018-12-03 12:22] VITALS: BP 145/69
== END 2018-12-03 12:28 | disposition home or self-care (01) | DRG 640 ==
LOC: N.ED 19:40 → N.EDINP 23:36 → N.TELEN 12-01 00:12
PROVIDERS: ADMIT Internal Medicine; ATTEND Internal Medicine